=== PATIENT | female | born 1960 | race Caucasian/White ===

== ENCOUNTER 2016-03-30 10:12 | Inpatient (IN) | payer BC ==
[~2016-03-30] VITALS: Ht 165.1 cm; Wt 126.6 kg
[2016-03-30] MEDS ORDERED: TENORMIN50 MG ORAL (10:27)
[2016-03-30] MEDS ORDERED: BYETTA10 MCG/0.0 SQ (10:27)
[2016-03-30] MEDS ORDERED: METFORMIN HCL1000 M1 ORAL (10:27)
[2016-03-30] MEDS ORDERED: PRANDIN2 MG ORAL (10:28)
[2016-03-30] MEDS ORDERED: VYTORIN 10-201 EACH ORAL (10:28)
[2016-03-30 10:36] VITALS: BP 158/89
[2016-03-30] MEDS ORDERED: Nitroglycerin 2% oint pkt TOPIC ONE (11:00)
--- NOTE | 2016-03-30 11:04 | Emergency Room Report ---
History of Present Illness General Chief Complaint: Dyspnea/Respdistress Source: Patient Present Illness HPI The patient presents with exertional dyspnea. She is able to walk upstairs before the [place] break but now she gets winded when she was making her bed and also when she was walking up stairs -- something she normally is able to do. Denies any swelling in her legs or pain in her calves. No coughing, sore throat, fever. No change in her medication. She passed a large kidney stone on Tuesday. She's had a history of uric acid stones. Family history of MIs at early age (father age 46). She has diabetes and hypertension. She does not smoke. H/O treatment of PVCs and w/u with Holter several years ago. No increased palpitations. No stress test at that time. She has constant stress with her job. 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 Nursing Documentation: PMH: Agreed, PSxH: Agreed Nursing Documentation-PMH Past Medical History: No History, Except For Hx Cardiac Problems: Yes - PVC Hx Hypertension: No Hx Pacemaker: No Hx Asthma: No Hx COPD: No Hx Diabetes: Yes Hx Cancer: No Hx Gastrointestinal Problems: No Hx Dialysis: No - Kidney stone History Of Psychiatric Problem: No Hx Neurological Problems: No Hx Cerebrovascular Accident: No Hx Seizures: No Review of Systems All Other Systems: negative except mentioned in HPI Physical Exam Vital Signs Date Time Temp Pulse Resp B/P Pulse Ox O2 Delivery O2 Flow Rate FiO2 03/30/16 10:21 97.2 70 18 158/89 93 Room Air Sp02 EP Interpretation: reviewed, normal General Appearance: well appearing, no apparent distress, GCS 15, obese Head: normocephalic, atraumatic Eyes: bilateral eye PERRL, bilateral eye normal inspection ENT: moist mucus membranes Neck: full range of motion, supple Respiratory: chest non-tender, lungs clear, normal breath sounds Cardiovascular #1: regular rate, rhythm, no edema, no JVD Cardiovascular #2: 2+ radial (R) Gastrointestinal: normal inspection, normal bowel sounds, non tender, non- distended Musculoskeletal: back normal, gait/station normal, normal range of motion, no calf tenderness Neurologic: alert, oriented x3 - grossly normal Psychiatric: mood/affect normal Skin: normal inspection, warm/dry Medical Decision Making Diagnostic Impression: Primary Impression: ACS (acute coronary syndrome) Additional Impressions: Diabetes Qualified Codes: E11.9 - Type 2 diabetes mellitus without complications HTN (hypertension) Qualified Codes: I10 - Essential (primary) hypertension ER Course Patient with significant family history, diabetes and HTN with exertional dyspnea which is occurring with less exertion. DDx: deconditioning, ACS, AMI, crescendo angina. Exam against PE. No fevers so doubt bronchitis. No chest pain per se, but patient is female. Needs emergent evaluation with labs, EKG, CXR. Treatment with aspirin and nitrates with cardiac evaluation. Labs unremarkable. EKG normal. Patient would like outpatient work up, however, needs at least 3 neg troponins to decide. Needs consultation with statistical methods teacher. Asymptomatic at rest. Admit telemetry Dr. Goins. Laboratory Tests Test 03/30/16 11:46 03/30/16 14:25 03/30/16 19:05 White Blood Count 11.6 K/UL (4.8-10.8) H Red Blood Count 4.44 M/UL (4.20-5.40) Hemoglobin 14.5 G/DL (12.0-16.0) Hematocrit 43.5 % (37.0-47.0) Mean Corpuscular Volume 98 FL (80-99) Mean Corpuscular Hemoglobin 32.7 PG (27.0-31.0) H Mean Corpuscular Hemoglobin Concent 33.4 G/DL (32.0-36.0) Red Cell Distribution Width 11.6 % (11.6-14.8) Platelet Count 224 K/UL (150-450) Mean Platelet Volume 8.3 FL (6.5-10.1) Neutrophils (%) (Auto) 71.2 % (45.0-75.0) Lymphocytes (%) (Auto) 19.1 % (20.0-45.0) L Monocytes (%) (Auto) 5.1 % (1.0-10.0) Eosinophils (%) (Auto) 3.8 % (0.0-3.0) H Basophils (%) (Auto) 0.9 % (0.0-2.0) Prothrombin Time 9.7 SEC (9.30-11.50) Prothrombin Time INR 1.0 (0.9-1.1) PTT 31 SEC (23-33) Urine Color Pale yellow Urine Appearance Clear Urine pH 5 (4.5-8.0) Urine Specific [place] 1.010 (1.005-1.035) Urine Protein 1+ (NEGATIVE) H Urine Glucose (UA) 2+ (NEGATIVE) H Urine Ketones Negative (NEGATIVE) Urine Occult Blood Negative (NEGATIVE) Urine Nitrite Negative (NEGATIVE) Urine Bilirubin Negative (NEGATIVE) Urine Urobilinogen Normal MG/DL (0.0-1.0) Urine Leukocyte Esterase 1+ (NEGATIVE) H Urine RBC 0-2 /HPF (0 - 2) Urine WBC 2-4 /HPF (0 - 2) Urine Squamous Epithelial Cells Few /LPF (NONE/OCC) Urine Bacteria Few /HPF (NONE) Sodium Level 135 mEQ/L (135-145) Potassium Level 4.5 mEQ/L (3.4-4.9) Chloride Level 92 mEQ/L (98-107) L Carbon Dioxide Level 25 mEQ/L (20-30) Anion Gap 18 (5-15) H Blood Urea Nitrogen 20 mg/dL (7-23) Creatinine 1.0 mg/dL (0.5-0.9) H Estimate Glomerular Filtration Rate 57.1 mL/min (>60) Glucose Level 269 mg/dL (74-106) H Calcium Level 9.8 mg/dL (8.6-10.2) Total Bilirubin 2.0 mg/dL (0.0-1.2) H Direct Bilirubin 0.3 mg/dL (0.1-0.3) Aspartate Amino Transferase (AST) 25 U/L (5-40) Alanine Aminotransferase (ALT) 38 U/L (3-33) H Alkaline Phosphatase 88 U/L (35-104) Total Creatine Kinase 29 U/L (26-140) Troponin I < 0.30 ng/mL (<=0.30) < 0.30 ng/mL (<=0.30) < 0.30 ng/mL (<=0.30) Pro-B-Type Natriuretic Peptide 118 pg/mL (0-125) Total Protein 7.6 g/dL (6.6-8.7) Albumin 4.4 g/dL (3.5-5.2) Globulin 3.2 g/dL Albumin/Globulin Ratio 1.3 (1.0-2.7) Thyroid Stimulating Hormone (TSH) 0.980 uIU/mL (0.300-4.500) EKG Diagnostic Results Rate: normal Rhythm: NSR ST Segments: no acute changes Rhythm Strip Diag. Results EP Interpretation: yes Rhythm: NSR, no PVC's, no ectopy Chest X-Ray Diagnostic Results EP Interpretation: Yes Findings: no consolidation, no effusion, no pneumothorax, no acute cardiopulmonary disease Number of Views: 1 Last Vital Signs Date Time Temp Pulse Resp B/P Pulse Ox O2 Delivery O2 Flow Rate FiO2 03/30/16 10:59 70 18 Room Air 03/30/16 10:36 97.2 158/89 93 Status: improved Disposition: ADMITTED INPATIENT Condition: Serious Jerel Cardenas M.D. Mar 30, 2016 11:04
[2016-03-30 11:58] LABS: APPEARANCE,URINE CLEAR; BASOPHILS % (AUTO) 0.9 % (0.0-2.0); EOSINOPHILS % (AUTO) 3.8 % (0.0-3.0); KETONES,URINE NEGATIVE (NEGATIVE); LEUKOCYTE ESTERASE ,URINE 1+ (NEGATIVE); LYMPHOCYTES % (AUTO) 19.1 % (20.0-45.0); MEAN CORPUSCULAR HEMOGLOBIN 32.7 PG (27.0-31.0); MEAN CORPUSCULAR HGB CONC 33.4 G/DL (32.0-36.0); MEAN CORPUSCULAR VOLUME 98 FL (80-99); MEAN PLATELET VOLUME 8.3 FL (6.5-10.1); MONOCYTES % (AUTO) 5.1 % (1.0-10.0); NEUTROPHILS % (AUTO) 71.2 % (45.0-75.0); NITRITE,URINE NEGATIVE (NEGATIVE); PH,URINE 5 (4.5-8.0); PLATELET COUNT 224 K/UL (150-450); PROTEIN,URINE 1+ (NEGATIVE); RED BLOOD COUNT 4.44 M/UL (4.20-5.40); RED CELL DISTRIBUTION WIDTH 11.6 % (11.6-14.8); UROBILINOGEN,URINE NORMAL MG/DL (0.0-1.0); WHITE BLOOD COUNT 11.6 K/UL (4.8-10.8)
[2016-03-30 12:07] LABS: PROTHROMBIN TIME 9.7 SEC (9.30-11.50)
[2016-03-30 12:08] LABS: BACTERIA,URINE FEW /HPF; RBC,URINE 0-2 /HPF (0 - 2); SQUAMOUS EPITHELIAL CELL,UR FEW /LPF (NONE/OCC)
[2016-03-30 12:12] LABS: TROPONIN I < 0.30 ng/mL (<=0.30)
[2016-03-30 12:15] LABS: ALANINE AMINOTRANSFERASE 38 U/L (3-33); ALBUMIN/GLOBULIN RATIO 1.3 (1.0-2.7); ANION GAP 18 (5-15); ASPARTATE AMINO TRANSFERASE 25 U/L (5-40); CALCIUM 9.8 mg/dL (8.6-10.2); CARBON DIOXIDE 25 mEQ/L (20-30); CHLORIDE 92 mEQ/L (98-107); GLOMERULAR FILTRATION RATE 57.1 mL/min (>60); HEMOLYSIS 0; POTASSIUM 4.5 mEQ/L (3.4-4.9); SODIUM 135 mEQ/L (135-145); TOTAL PROTEIN 7.6 g/dL (6.6-8.7)
[2016-03-30 12:37] LABS: BILIRUBIN,DIRECT 0.3 mg/dL (0.1-0.3)
[2016-03-30 13:34] VITALS: BP 124/75
[2016-03-30 15:12] LABS: TROPONIN I < 0.30 ng/mL (<=0.30)
[2016-03-30 15:46] VITALS: BP 119/72
[2016-03-30 16:00] VITALS: BP 138/78
[2016-03-30 20:00] VITALS: BP 124/59
[2016-03-30 20:00] LABS: TROPONIN I < 0.30 ng/mL (<=0.30)
[2016-03-30] MEDS: metFORMIN 500mg tab ORAL SCH (20:00)
[2016-03-30] MEDS: NovoLOG Insulin Flexpen SUBQ SCH (21:00)
[2016-03-30] MEDS: Heparin 5000 units/ml inj SUBQ SCH (21:16)
[2016-03-31 04:00] VITALS: BP 129/69
[2016-03-31] MEDS: Heparin 5000 units/ml inj SUBQ SCH ×3 (05:51→21:48)
[2016-03-31] MEDS: NovoLOG Insulin Flexpen SUBQ SCH ×4 (06:29→21:00)
[2016-03-31 08:06] LABS: LYMPHOCYTES % (AUTO) 19.3 % (20.0-45.0); MEAN CORPUSCULAR HEMOGLOBIN 33.4 PG (27.0-31.0); MEAN CORPUSCULAR HGB CONC 34.2 G/DL (32.0-36.0); MEAN CORPUSCULAR VOLUME 98 FL (80-99); MEAN PLATELET VOLUME 7.9 FL (6.5-10.1); NEUTROPHILS % (AUTO) 70.7 % (45.0-75.0); PLATELET COUNT 216 K/UL (150-450); RED BLOOD COUNT 4.16 M/UL (4.20-5.40); RED CELL DISTRIBUTION WIDTH 11.6 % (11.6-14.8); WHITE BLOOD COUNT 10.5 K/UL (4.8-10.8)
[2016-03-31] MEDS: Repaglinide 1mg tab ORAL SCH ×4 (08:11→17:44)
[2016-03-31 08:18] LABS: ALBUMIN/GLOBULIN RATIO 1.1 (1.0-2.7); CALCIUM 9.7 mg/dL (8.6-10.2); GLOMERULAR FILTRATION RATE 57.1 mL/min (>60); MAGNESIUM 1.5 mg/dL (1.7-2.5); POTASSIUM 4.7 mEQ/L (3.4-4.9); TOTAL PROTEIN 7.5 g/dL (6.6-8.7)
[2016-03-31 08:32] LABS: TROPONIN I < 0.30 ng/mL (<=0.30)
[2016-03-31 08:33] LABS: BILIRUBIN,DIRECT 0.3 mg/dL (0.1-0.3)
[2016-03-31 08:34] VITALS: BP 138/77
[2016-03-31] MEDS: Aspirin Baby 81mg ORAL SCH (08:46)
[2016-03-31] MEDS: metFORMIN 500mg tab ORAL SCH ×2 (09:00→18:00)
[2016-03-31 11:58] VITALS: BP 140/80
--- NOTE | 2016-03-31 13:53 | History & Physical ---
History and Physical History & Physicial Dictated for Dr Goins no. [id number]. LUZMARIA REYNOLDS Mar 31, 2016 13:53
[2016-03-31] MEDS ORDERED: Adenosine Inj IVP ONE (14:00)
--- NOTE | 2016-03-31 15:01 | Cardiology Report ---
APPROVED REPORT EKG Measurement Heart [id number] Normal sinus rhythm Cannot rule out Inferior infarct, age undetermined Abnormal ECG
--- NOTE | 2016-03-31 15:08 | Cardiology Report ---
APPROVED REPORT EKG Measurement Heart [id number] FL [id number] Normal sinus rhythm Left axis deviation Low voltage QRS Cannot rule out Anterior infarct, age undetermined Abnormal ECG
--- NOTE | 2016-03-31 15:27 | Cardiology Report ---
APPROVED REPORT EXAM: Two-dimensional and M-mode echocardiogram with Doppler and color Doppler. INDICATION SOB M-Mode DIMENSIONS IVSd1.1 (0.7-1.1cm)Left Atrium (MM)4.5 (1.6-4.0cm) LVDd4.5 (3.5-5.6cm)Aortic Root2.9 (2.0-3.7cm) PWd0.8 (0.7-1.1cm)Aortic Cusp Exc.1.7 (1.5-2.0cm) LVDs2.5 (2.5-4.0cm) PWs1.5 cm Technically difficult study due to poor acoustic windows. Normal left ventricular chamber size, systolic function and wall motion. Left ventricular ejection fraction estimated to be 60-65 %. Mild left ventricular hypertrophy. Mild anterior pericardial effusion. Mild bi-atrial and right atrial enlargement by 2D. Focal aortic valve sclerosis with adequate cusp excursion Thickened mitral valve leaflets with normal excursion. Mitral annulus and aortic root calcification. Pulmonic valve not well visualized. Normal tricuspid valve structure. IVC is normal in size with physiologic collapse. A color flow and spectral Doppler study was performed and revealed: No aortic regurgitation. No mitral regurgitation. Left ventricular diastolic dysfunction grade 1. Mild tricuspid regurgitation. Tricuspid systolic velocities suggests peak right ventricular systolic pressure of 49 mmHg Consistent with moderate pulmonary hypertension. Pulmonic regurgitation present.
[2016-03-31 16:00] VITALS: BP 117/77
--- NOTE | 2016-03-31 19:27 | History and Physical Report ---
DATE OF ADMISSION: 03/30/2016 CHIEF COMPLAINT: The patient is a 55-year-old white female, who presents with chief complaint of shortness of breath. HISTORY OF PRESENT ILLNESS: Began on 03/29/2016. The patient was began to experience shortness of breath. Shortness of breath got worse on Tuesday. Shortness of breath was worse with exacerbation and exercise. The patient states that she had a 7 [address] car ride over the weekend. The patient is concerned with pulmonary embolism as she has read on the Internet. The patient presented to [facility]. The patient is admitted for shortness of breath to rule out coronary artery disease versus pulmonary embolism. PAST MEDICAL HISTORY: Significant for, 1. Type 2 diabetes. 2. History of renal calculi, uric acid. 3. Hypertension. 4. History of premature ventricular contractions. 5. Uterine fibroid. PAST SURGICAL HISTORY: The patient denies. CURRENT MEDICATIONS: 1. Atenolol 50 mg one tablet p.o. twice daily. 2. Metformin 1000 mg one tablet p.o. twice daily. 3. Vytorin 10/20 mg one tablet p.o. daily. 4. Prandin 2 milligram two tablets p.o. q.a.c. meals. 5. Byetta 10 mcg subcutaneously twice daily. ALLERGIES: No known drug allergies. 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 The patient denies tobacco use. The patient admits to rare alcohol use. REVIEW OF SYSTEMS: Constitutional: The patient denies weight loss or weight gain. The patient denies fevers or chills. HEENT: The patient denies ear or throat pain. The patient denies headache. Cardiovascular: The patient denies palpitations or chest pain. Chest: The patient complains of shortness of breath as above. The patient denies wheezes. Abdomen: The patient denies nausea, vomiting, diarrhea, or constipation. Genitourinary: The patient denies dysuria or increased frequency of urination. Neuromuscular: The patient denies seizures or generalized weakness. PHYSICAL EXAMINATION: VITAL SIGNS: Temperature 98.6 degrees, respirations 18, pulse 71, blood pressure 129/69, and pulse oximetry 92% to 95% on room air. GENERAL: The patient is well developed, well nourished, obese white female, in no apparent distress. HEENT: Eyes, pupils are equal and responsive to light and accommodation. Extraocular movements are intact. NECK: Supple without lymphadenopathy. CHEST: Lungs are clear to auscultation bilaterally without wheeze or rales. HEART: Regular rhythm and rate. S1 and S2 normal without murmurs, rubs, or gallops. ABDOMEN: Soft, nontender, and nondistended. Positive bowel sounds. No evidence of hepatosplenomegaly. Currently, no rebound or guarding. EXTREMITIES: Negative for clubbing, cyanosis, or or edema. RECTAL/GENITAL: Refused. NEUROLOGIC: Cranial nerves II through XII are grossly intact without focal deficits. Motor strength is 5/5 bilaterally. Deep tendon reflexes are 2+ plantar. LABORATORY STUDIES: WBC 11.6, hemoglobin 14.5, hematocrit 43.5, and platelets 224,000. Sodium 140, potassium 4.7, chloride 97, CO2 17, BUN 20, and creatinine 1.0. Glucose is elevated at 217. Troponin is negative at less than 0.3. ASSESSMENT: This is a 55-year-old white female. 1. Shortness of breath. 2. Diabetes type 2. 3. Renal calculi. 4. Hypertension. 5. Premature ventricular contractions. 6. History of uterine fibroids. TREATMENT: 1. Shortness of breath. A Cardiology consultation was obtained with Dr. Gao. This may be cardiac in nature. This may also be pulmonary in nature. The patient is currently undergoing venous duplex Dopplers to rule out deep venous thrombosis. The patient is also scheduled for a dobutamine Cardiolite stress test. 2. Diabetes type 2. Continue Prandin and metformin as above. A NovoLog sliding scale has been instituted. 3. History of renal calculi. 4. Hypertension. Continue atenolol as above. 5. Premature ventricular contractions. Continue atenolol as above. A Cardiology consultation was obtained with Dr. Gao. 6. History of uterine fibroids. Eris Barkley M.D. DR: MARI JOB#: [id number] CC:
[2016-03-31 20:00] VITALS: BP 147/87
--- NOTE | 2016-03-31 20:47 | Consultation ---
DATE OF CONSULTATION: 03/31/2016 CARDIOLOGY CONSULTATION ATTENDING PHYSICIAN: Jovanny Goins M.D. REFERRING PHYSICIAN: Jovanny Goins M.D. REASON FOR CONSULTATION: Shortness of breath. HISTORY OF PRESENT ILLNESS: The patient is a 55-year-old woman with no past coronary history, who presents with sudden onset of shortness of breath and dyspnea on exertion going up the stairs where she usually has no problems. She was recently in a 7-hour drive from [place]. She denies any chest pain. She denies any pleuritic component. She has a history of hypertension, hyperlipidemia, and diabetes. She also has a history of PVCs that she has been on a beta-claudia for it. The patient was admitted through the emergency room for further care and management. PAST MEDICAL HISTORY: As mentioned above. MEDICATIONS: I have reviewed the medication reconciliation form and medication administration record. ALLERGIES: None. 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 She does not smoke or drink alcohol. FAMILY HISTORY: Positive for premature coronary artery disease in father. REVIEW OF SYSTEMS: Comprehensive 12-point review of systems otherwise negative. PHYSICAL EXAMINATION: VITAL SIGNS: Stable. GENERAL: She is morbidly obese, in no apparent distress. HEENT: Normocephalic and atraumatic. Conjunctivae nonicteric and noninjected. Oral mucosa appear moist. NECK: Supple. There is no lymphadenopathy or carotid bruits. LUNGS: Clear to auscultation. CARDIAC: Regular rate and rhythm. No murmurs, rubs, gallops. ABDOMEN: Soft and nontender. EXTREMITIES: There is no cyanosis, clubbing, or edema. There is 2+ pulses. IMPRESSION AND RECOMMENDATION: 1. Shortness of breath and dyspnea on exertion. 2. Morbid obesity. 3. Diabetes. DISCUSSION: She certainly has risk factors for pulmonary embolism. She has a significantly high D-dimer, this could be due to inflammatory response and diabetes, however, it is important to rule out pulmonary embolism. She is ruled out for myocardial infarction with serial enzymes. We will obtain a stress test, the lower extremity venous Doppler and CT pulmonary angiogram. Thank you, Dr. Goins, for allowing me to participate in care patient. Please feel free to contact me with any questions or concerns. Kofi Gao M.D. DR: JESSICA JOB#: [id number] CC:
[2016-04-01] VITALS: BP 121/67
[2016-04-01] MEDS: Heparin 5000 units/ml inj SUBQ SCH ×2 (05:47→14:35)
[2016-04-01] MEDS: NovoLOG Insulin Flexpen SUBQ SCH ×4 (05:53→21:00)
[2016-04-01] MEDS: Repaglinide 1mg tab ORAL SCH ×3 (06:56→16:30)
[2016-04-01 07:16] LABS: BASOPHILS % (AUTO) 1.1 % (0.0-2.0); EOSINOPHILS % (AUTO) 2.9 % (0.0-3.0); LYMPHOCYTES % (AUTO) 21.5 % (20.0-45.0); MEAN CORPUSCULAR HEMOGLOBIN 34.5 PG (27.0-31.0); MEAN CORPUSCULAR HGB CONC 35.1 G/DL (32.0-36.0); MEAN CORPUSCULAR VOLUME 98 FL (80-99); MEAN PLATELET VOLUME 8.7 FL (6.5-10.1); MONOCYTES % (AUTO) 7.3 % (1.0-10.0); NEUTROPHILS % (AUTO) 67.1 % (45.0-75.0); PLATELET COUNT 223 K/UL (150-450); RED BLOOD COUNT 4.03 M/UL (4.20-5.40); RED CELL DISTRIBUTION WIDTH 11.8 % (11.6-14.8); WHITE BLOOD COUNT 11.9 K/UL (4.8-10.8)
[2016-04-01 07:34] LABS: CALCIUM 9.4 mg/dL (8.6-10.2); GLOMERULAR FILTRATION RATE 57.1 mL/min (>60); POTASSIUM 4.3 mEQ/L (3.4-4.9)
[2016-04-01 08:19] VITALS: BP 120/69
[2016-04-01 08:22] VITALS: BP 120/69
[2016-04-01] MEDS: Aspirin Baby 81mg ORAL SCH (09:37)
[2016-04-01] MEDS: metFORMIN 500mg tab ORAL SCH ×2 (09:39→18:00)
--- NOTE | 2016-04-01 10:19 | Diagnostic Imaging Report ---
Indications: 55-year-old female inpatient presents with syncope and shortness of breath Technique: The examination was supervised by Dr. Gao. Baseline electrocardiogram was recorded. Adenosine was administered the patient intravenously per usual protocol. Continuous electrocardiography, heart rate, blood pressure monitoring performed. Immediate SPECT imaging of the left ventricular myocardium was performed in multiple planes with the patient in supine position, following intravenous administration of 31 mCi 99 M technetium-sestaMIBI. Cinegraphic images were generated for wall motion analysis. Left ventricular ejection fraction was calculated. Similar imaging was performed at rest immediately prior with intravenous administration of 11.5 mCi 99 M technetium-sestaMIBI. Findings: Comparison: None. Image quality is suboptimal, limiting evaluation. Stress images demonstrate a moderate-sized area of decreased perfusion involving the mid to basal aspect of the lateral wall. This appears to reperfuse on rest images.. Wall motion images are uninterpretable. Ejection fraction is estimated at 67%. The patient developed no acute complaints or electrocardiographic changes during adenosine infusion. Supervising milking system installer's conclusions are that clinical response to pharmacologic stress simulation is nonischemic while electrocardiographic response is likewise nonischemic. IMPRESSION: Apparent reversible perfusion abnormality in the mid to basal aspect of the lateral wall compatible with ischemia in the distribution of the circumflex artery. Correlation with wall motion is not possible on this exam. LVEF within normal limits This does not correlate with supervising milking system installer's conclusions.
[2016-04-01 11:56] VITALS: BP 111/73
[2016-04-01 16:00] VITALS: BP 139/88
--- NOTE | 2016-04-01 16:56 | Cardiology Progress Note ---
Assessment/Plan Problem List: (1) Respiratory distress (2) HTN (hypertension) (3) ACS (acute coronary syndrome) (4) Diabetes Status: not improved, unchanged Status Narrative Ms. Joaquin has bilateral pulm emboli incl small nonocclusive saddle embolus on CT. Venous duplex was negative for DVT Stress nuclear study shows a possible reversible mid- basal lateral perfusion defect w/ ischemia. ECHO is essentially normal. Assessment/Plan Will start iv heparin for acute PE. Supplemental O2 prn She will need oral ac as well. Will transfer to [facility] , as pt may need more advanced therapies for PE, given extent of thrombus based on CT Stress nuclear findings noted - would consider CTA coronary arteries once she has been treated for PE d/w Dr. Barkley Subjective ROS Limited/Unobtainable: No Subjective Ms. Joaquin c/o dyspnea w minimal exertion - walking in room. No CP. No LE pain Events noted Objective Last 24 Hour Vital Signs Date Time Temp Pulse Resp B/P Pulse Ox O2 Delivery O2 Flow Rate FiO2 04/01/16 11:56 98.1 67 18 111/73 95 Room Air 04/01/16 09:40 95 120/69 04/01/16 08:26 84 04/01/16 08:22 97.3 75 18 120/69 95 Room Air 04/01/16 08:19 98.2 75 20 120/69 95 Room Air 04/01/16 04:00 98.2 04/01/16 04:00 71 04/01/16 00:00 98.0 95 20 121/67 94 Room Air 04/01/16 00:00 72 03/31/16 20:37 94 147/87 03/31/16 20:00 97 03/31/16 20:00 96.0 89 20 147/87 94 Room Air General Appearance: WD/WN, alert, mild distress, obese EENT: PERRL/EOMI Neck: no JVD Rhythm: NSR Cardiovascular: normal rate, regular rhythm, no gallop/murmur Respiratory/Chest: lungs clear Abdomen: non tender, soft Extremities: non-tender, no swelling Intake and Output 03/31/16 04/01/16 19:00 07:00 # Voids 2 Laboratory Tests Test 04/01/16 06:25 White Blood Count 11.9 K/UL (4.8-10.8) H Red Blood Count 4.03 M/UL (4.20-5.40) L Hemoglobin 13.9 G/DL (12.0-16.0) Hematocrit 39.5 % (37.0-47.0) Mean Corpuscular Volume 98 FL (80-99) Mean Corpuscular Hemoglobin 34.5 PG (27.0-31.0) H Mean Corpuscular Hemoglobin Concent 35.1 G/DL (32.0-36.0) Red Cell Distribution Width 11.8 % (11.6-14.8) Platelet Count 223 K/UL (150-450) Mean Platelet Volume 8.7 FL (6.5-10.1) Neutrophils (%) (Auto) 67.1 % (45.0-75.0) Lymphocytes (%) (Auto) 21.5 % (20.0-45.0) Monocytes (%) (Auto) 7.3 % (1.0-10.0) Eosinophils (%) (Auto) 2.9 % (0.0-3.0) Basophils (%) (Auto) 1.1 % (0.0-2.0) Sodium Level 137 mEQ/L (135-145) Potassium Level 4.3 mEQ/L (3.4-4.9) Chloride Level 98 mEQ/L (98-107) Carbon Dioxide Level 24 mEQ/L (20-30) Anion Gap 15 (5-15) Blood Urea Nitrogen 21 mg/dL (7-23) Creatinine 1.0 mg/dL (0.5-0.9) H Estimat Glomerular Filtration Rate 57.1 mL/min (>60) Glucose Level 196 mg/dL (74-106) H Calcium Level 9.4 mg/dL (8.6-10.2) ANITA ACE Apr 01, 2016 16:56
--- NOTE | 2016-04-01 17:23 | Internal Med Progress Note ---
Subjective Date of Service: Apr 01, 2016 Physician Name Eris Barkley Attending Physician Jovanny Goins MD Current Medications Medications (Trade) Dose Ordered Sig/Martha Route PRN Reason Start Time Stop Time Status Last Admin Dose Admin Acetaminophen (Tylenol) 650 mg Q6H PRN ORAL For Pain 03/30/16 19:00 04/29/16 18:59 Aspirin (ASA) 81 mg DAILY ORAL 03/31/16 09:00 04/30/16 08:59 04/01/16 09:37 Atenolol (Tenormin) 50 mg Q12HR ORAL 03/30/16 21:00 04/29/16 20:59 04/01/16 09:40 Dextrose (Dextrose 50%) STAT PRN IV Hypoglycemia 03/30/16 18:00 04/29/16 17:59 Heparin Sodium (Porcine) (Heparin 5000 units/ml) 5,000 units EVERY 8 HOURS SUBQ 03/30/16 22:00 04/29/16 21:59 04/01/16 14:35 Insulin Aspart (NovoLOG) BEFORE MEALS AND HS SUBQ 03/30/16 21:00 04/29/16 20:59 Metformin HCl (Glucophage) 1,000 mg BID ORAL 03/30/16 20:00 04/29/16 19:59 Ranitidine HCl (Zantac) 75 mg BID ORAL 03/31/16 09:00 04/30/16 08:59 03/31/16 17:44 Repaglinide (Prandin) 4 mg TIAC ORAL 03/31/16 06:30 04/30/16 06:29 04/01/16 12:45 Allergies: Coded Allergies: No Known Allergies (Unverified , 03/30/16) ROS Limited/Unobtainable: No Constitutional: Reports: no symptoms HEENT: Reports: no symptoms Cardiovascular: Reports: no symptoms Respiratory: Reports: shortness of breath Gastrointestinal/Abdominal: Reports: no symptoms Genitourinary: Reports: no symptoms Neurologic/Psychiatric: Reports: no symptoms Subjective Cover for Int Med-Dr Goins. Await pulmonary consult. Desat to 88% on room air Objective Last Vital Signs Date Time Temp Pulse Resp B/P Pulse Ox O2 Delivery O2 Flow Rate FiO2 04/01/16 16:00 96.8 85 20 139/88 88 Room Air General Appearance: WD/WN, no apparent distress, alert EENT: PERRL/EOMI, normal ENT inspection, TMs normal Neck: non-tender, normal alignment, supple Cardiovascular: normal peripheral pulses, normal rate, regular rhythm, no gallop/murmur, no JVD Respiratory/Chest: chest wall non-tender, decreased breath sounds, crackles/ rales, rhonchi - bilaterally, expiratory wheezing Abdomen: normal bowel sounds, non tender, soft, no organomegaly, no mass Extremities: normal range of motion, non-tender Neurologic: fell cutter II-XII grossly normal, no motor/sensory deficits Laboratory Tests Test 04/01/16 06:25 White Blood Count 11.9 K/UL (4.8-10.8) H Red Blood Count 4.03 M/UL (4.20-5.40) L Hemoglobin 13.9 G/DL (12.0-16.0) Hematocrit 39.5 % (37.0-47.0) Mean Corpuscular Volume 98 FL (80-99) Mean Corpuscular Hemoglobin 34.5 PG (27.0-31.0) H Mean Corpuscular Hemoglobin Concent 35.1 G/DL (32.0-36.0) Red Cell Distribution Width 11.8 % (11.6-14.8) Platelet Count 223 K/UL (150-450) Mean Platelet Volume 8.7 FL (6.5-10.1) Neutrophils (%) (Auto) 67.1 % (45.0-75.0) Lymphocytes (%) (Auto) 21.5 % (20.0-45.0) Monocytes (%) (Auto) 7.3 % (1.0-10.0) Eosinophils (%) (Auto) 2.9 % (0.0-3.0) Basophils (%) (Auto) 1.1 % (0.0-2.0) Sodium Level 137 mEQ/L (135-145) Potassium Level 4.3 mEQ/L (3.4-4.9) Chloride Level 98 mEQ/L (98-107) Carbon Dioxide Level 24 mEQ/L (20-30) Anion Gap 15 (5-15) Blood Urea Nitrogen 21 mg/dL (7-23) Creatinine 1.0 mg/dL (0.5-0.9) H Estimat Glomerular Filtration Rate 57.1 mL/min (>60) Glucose Level 196 mg/dL (74-106) H Calcium Level 9.4 mg/dL (8.6-10.2) Intake and Output 03/31/16 04/01/16 19:00 07:00 # Voids 2 Assessment/Plan Problem List: (1) Pulmonary embolism Assessment & Plan: Bilateral. Venous doppler neg. Start heparin drip and coumadin; D/C heparin when coumadin therapeutic (2) Hypoxemia (3) Shortness of breath Assessment & Plan: Due to pulmonary embolism. (4) Renal calculi (5) Diabetes Assessment & Plan: Cont glucophage and novolog sliding scale. (6) HTN (hypertension) Assessment & Plan: Cont atenolol (7) Chest pain Assessment & Plan: see nuclear cardiac stress test. See cardiology note. Reversible Perfusion defect with ischemia Status: not improved Assessment/Plan Transfer to [facility] for Pulmonary Embolism team ERIS Mcarthur Apr 01, 2016 17:23
[2016-04-01] MEDS ORDERED: Heparin 25,000u/D5W 500ml (VTE/AF) IV SCH (18:00)
[2016-04-01] MEDS ORDERED: Heparin 5000 units/ml inj IV ONE (18:00)
[2016-04-01] MEDS ORDERED: Warfarin Sodium 7.5mg ORAL ONE (18:30)
[2016-04-01 18:46] LABS: BASOPHILS % (AUTO) 1.1 % (0.0-2.0); EOSINOPHILS % (AUTO) 2.4 % (0.0-3.0); LYMPHOCYTES % (AUTO) 21.2 % (20.0-45.0); MEAN CORPUSCULAR HEMOGLOBIN 34.1 PG (27.0-31.0); MEAN CORPUSCULAR HGB CONC 35.6 G/DL (32.0-36.0); MEAN CORPUSCULAR VOLUME 96 FL (80-99); MEAN PLATELET VOLUME 8.1 FL (6.5-10.1); NEUTROPHILS % (AUTO) 68.3 % (45.0-75.0); PLATELET COUNT 267 K/UL (150-450); RED BLOOD COUNT 4.42 M/UL (4.20-5.40); RED CELL DISTRIBUTION WIDTH 11.8 % (11.6-14.8); WHITE BLOOD COUNT 14.1 K/UL (4.8-10.8)
--- NOTE | 2016-04-01 18:55 | Consultation ---
History of Present Illness General Date patient seen: Apr 01, 2016 Chief Complaint: Dyspnea/Respdistress Referring physician: Dr. Goins Reason for Consultation: Dyspnea Present Illness HPI 55 year old female with hx of DM and HTN, who was sitting a car recently for a few hours, she presented to [facility] [place], [place] with CC of dyspnea, and being short winded. She was admitted to rule out CAD and ACS. Dr. Gao saw her in cardiology consultation and ordered CTA to rule out PE. CT anigo showed that she has "submassive" bilateral pulmonary embolism. She was started on IV heparin, pulmonary and hematology were called to help with the management. She is less short of breath now. But she is not back to her normal breathing pattern yet. Allergies: Coded Allergies: No Known Allergies (Unverified , 03/30/16) Medication History Scheduled Atenolol* (Tenormin*), 50 MG ORAL BID, (Reported) Exenatide (Byetta), 10 MCG SQ BID, (Reported) Ezetimibe/Simvastatin 10-20MG (Vytorin 10-20 Mg Tablet), 1 TAB ORAL DAILY, ( Reported) Metformin Hcl* (Metformin Hcl*), 1,000 MG ORAL BID, (Reported) Repaglinide (Prandin), 4 MG ORAL THREE TIMES A DAY, (Reported) Patient History Healthcare decision maker Resuscitation status Full Code Advanced Directive on File Past Medical/Surgical History Past Medical/Surgical History: (1) HTN (hypertension) (2) Diabetes Review of Systems All Other Systems: negative except mentioned in HPI Physical Exam General Appearance: WD/WN Lines, tubes and drains: peripheral, central line HEENT: normocephalic, atraumatic Neck: non-tender, normal alignment Respiratory/Chest: chest wall non-tender, lungs clear Cardiovascular/Chest: normal peripheral pulses, normal rate Abdomen: normal bowel sounds Genitourinary/Rectal: normal genital exam Extremities: normal range of motion Last 24 Hour Vital Signs Date Time Temp Pulse Resp B/P Pulse Ox O2 Delivery O2 Flow Rate FiO2 04/01/16 16:00 96.8 85 20 139/88 88 Room Air 04/01/16 11:56 98.1 67 18 111/73 95 Room Air 04/01/16 09:40 95 120/69 04/01/16 08:26 84 04/01/16 08:22 97.3 75 18 120/69 95 Room Air 04/01/16 08:19 98.2 75 20 120/69 95 Room Air 04/01/16 04:00 98.2 04/01/16 04:00 71 04/01/16 00:00 98.0 95 20 121/67 94 Room Air 04/01/16 00:00 72 03/31/16 20:37 94 147/87 03/31/16 20:00 97 03/31/16 20:00 96.0 89 20 147/87 94 Room Air Intake and Output 03/31/16 04/01/16 19:00 07:00 # Voids 2 Laboratory Tests Test 04/01/16 06:25 04/01/16 18:15 White Blood Count 11.9 K/UL (4.8-10.8) H 14.1 K/UL (4.8-10.8) H Red Blood Count 4.03 M/UL (4.20-5.40) L 4.42 M/UL (4.20-5.40) Hemoglobin 13.9 G/DL (12.0-16.0) 15.1 G/DL (12.0-16.0) Hematocrit 39.5 % (37.0-47.0) 42.3 % (37.0-47.0) Mean Corpuscular Volume 98 FL (80-99) 96 FL (80-99) Mean Corpuscular Hemoglobin 34.5 PG (27.0-31.0) H 34.1 PG (27.0-31.0) H Mean Corpuscular Hemoglobin Concent 35.1 G/DL (32.0-36.0) 35.6 G/DL (32.0-36.0) Red Cell Distribution Width 11.8 % (11.6-14.8) 11.8 % (11.6-14.8) Platelet Count 223 K/UL (150-450) 267 K/UL (150-450) Mean Platelet Volume 8.7 FL (6.5-10.1) 8.1 FL (6.5-10.1) Neutrophils (%) (Auto) 67.1 % (45.0-75.0) 68.3 % (45.0-75.0) Lymphocytes (%) (Auto) 21.5 % (20.0-45.0) 21.2 % (20.0-45.0) Monocytes (%) (Auto) 7.3 % (1.0-10.0) 7.0 % (1.0-10.0) Eosinophils (%) (Auto) 2.9 % (0.0-3.0) 2.4 % (0.0-3.0) Basophils (%) (Auto) 1.1 % (0.0-2.0) 1.1 % (0.0-2.0) Sodium Level 137 mEQ/L (135-145) Potassium Level 4.3 mEQ/L (3.4-4.9) Chloride Level 98 mEQ/L (98-107) Carbon Dioxide Level 24 mEQ/L (20-30) Anion Gap 15 (5-15) Blood Urea Nitrogen 21 mg/dL (7-23) Creatinine 1.0 mg/dL (0.5-0.9) H Estimat Glomerular Filtration Rate 57.1 mL/min (>60) Glucose Level 196 mg/dL (74-106) H Calcium Level 9.4 mg/dL (8.6-10.2) Activated Partial Thromboplast Time Pending Height (Feet): 5 Height (Inches): 5.00 Weight (Pounds): 279 Medications Current Medications Medications (Trade) Dose Ordered Sig/Martha Route PRN Reason Start Time Stop Time Status Last Admin Dose Admin Acetaminophen 650 mg 650 mg Q6H PRN ORAL For Pain 03/30/16 19:00 04/29/16 18:59 Aspirin (ASA) 81 mg DAILY ORAL 03/31/16 09:00 04/30/16 08:59 04/01/16 09:37 Atenolol (Tenormin) 50 mg Q12HR ORAL 03/30/16 21:00 04/29/16 20:59 04/01/16 09:40 Dextrose (Dextrose 50%) STAT PRN IV Hypoglycemia 03/30/16 18:00 04/29/16 17:59 Heparin Sodium/ Dextrose (Heparin) 500 ml @ 43.028 mls/ hr Q24H IV 04/01/16 18:00 05/01/16 17:59 Insulin Aspart (NovoLOG) BEFORE MEALS AND HS SUBQ 03/30/16 21:00 04/29/16 20:59 Metformin HCl (Glucophage) 1,000 mg BID ORAL 03/30/16 20:00 04/29/16 19:59 Ranitidine HCl (Zantac) 75 mg BID ORAL 03/31/16 09:00 04/30/16 08:59 03/31/16 17:44 Repaglinide (Prandin) 4 mg TIAC ORAL 03/31/16 06:30 04/30/16 06:29 04/01/16 12:45 Rivaroxaban (Xarelto) 15 mg BID ORAL 04/02/16 09:00 05/02/16 08:59 UNV Warfarin Sodium (Coumadin per pharmacy) 1 ea DAILY PRN MISC . 04/01/16 17:30 05/01/16 17:29 Assessment/Plan Problem List: (1) Pulmonary embolism ICD Codes: I26.99 - Other pulmonary embolism without acute cor pulmonale SNOMED: 07461081, 43170856 Qualifiers: Qualified Codes: I26.92 - Saddle embolus of pulmonary artery without acute cor pulmonale (2) HTN (hypertension) ICD Codes: I10 - Essential (primary) hypertension SNOMED: 84834746 Qualifiers: Qualified Codes: I10 - Essential (primary) hypertension (3) Diabetes ICD Codes: E11.9 - Type 2 diabetes mellitus without complications SNOMED: 20683187 Qualifiers: Qualified Codes: E11.9 - Type 2 diabetes mellitus without complications Assessment/Plan IV heparin keep in telemetry echo to evaluate right heart function Start coumadin within one day. titrate cardiac meds monitor bp EDMOND BERNAL Apr 01, 2016 18:55
[2016-04-01 20:00] VITALS: BP 136/84
[2016-04-02] VITALS (7 sets, daily range): BP systolic 108–137; BP diastolic 67–82
--- NOTE | 2016-04-02 00:17 | Consultation ---
DATE OF CONSULTATION: NOTE: POOR AUDIO HEMATOLOGY/ONCOLOGY CONSULTATION REQUESTING PHYSICIAN: Eris Barkley M.D. REASON FOR CONSULTATION: Evaluation of pulmonary embolism. IDENTIFICATION: Dear Dr. Eris Barkley, The patient is a pleasant 55-year-old female with a past medical history, which is significant for no cardiac history, type 2 diabetes, history of renal calculi, uric acid elevation, hypertension, premature ventricular contractions, as well as uterine fibroids, at this time presented days ago for shortness of breath, dyspnea on exertion, this has been ongoing for the past several hours for the past several days. She reports that she had a seven-hour car ride over the weekend and she was concerned that she may have sustained a pulmonary embolism upon admission. She presented to the ER and was admitted with shortness of breath. CAT scan with angiogram reviewed pulmonary embolism with embolism. Hematology service is consulted. The patient is currently is on heparin drip. PAST MEDICAL HISTORY: Type 2 diabetes mellitus, history of renal calculi, uric acid, hypertension, premature ventricular contractions, and uterine fibroid. PAST SURGICAL HISTORY: None noted. MEDICATIONS: Atenolol, Vytorin, Prandin, Byetta, and metformin. ALLERGIES: No known drug allergies. SOCIAL HISTORY: Single. 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 Denies any tobacco use. Occasional use of alcohol, bur rarely. FAMILY HISTORY: Noncontributory. REVIEW OF SYSTEMS: Constitutional: No fever, chills, or night sweats. Skin: No rashes, lumps, or itching. HEENT: No headache or vision changes. Breasts: No lumps, pain, or discharge. Pulmonary: No cough or sputum. Shortness of breath. Cardiovascular: No chest pain, tightness, or palpitations. Gastrointestinal: No nausea, vomiting, or diarrhea. Genitourinary: No dysuria, frequency, or urgency. Musculoskeletal: No joint swelling, muscle pain, or trauma. PHYSICAL EXAMINATION: GENERAL: The patient is in no acute distress. VITAL SIGNS: Temperature is 96.8 degrees Fahrenheit , pulse 85, respiratory rate 12, blood pressure 139/88, and pulse oximetry 88% on room air. PULMONARY: Decreased breath sounds. CARDIOVASCULAR: Regular rate. No S3 or S4. ABDOMEN: Soft, nontender, and nondistended. EXTREMITIES: A 1+ edema. LABORATORY AND DIAGNOSTIC DATA: CBC, WBC 14.1, hemoglobin 15.1, hematocrit 42, and platelet count . BUN 21, creatinine 1. INR of 1. Urine shows 1+ protein and 2+ glucose. IMAGING: A Duplex of the lower extremities was negative for DVT. Myocardial perfusion scan lateral wall compatible with ischemia. ASSESSMENT: 1. Bilateral pulmonary embolism, on CTA. We need to confirm this all. The patient sustained pulmonary embolism after a seven-hour car ride . She will need a total of three months of anticoagulation. Next, will need a total of six months of anticoagulation. Coumadin and/or Xarelto we will consider transfer to [facility] for other interventions especially if the patient's vital signs . 2. embolism. 3. Shortness of breath, chest pain, rule out acute coronary syndrome. 4. Morbid obesity. 5. Diabetes mellitus. 6. Hypertension. 7. History of renal calculi. 8. Premature ventricular contractions. 9. Uterine fibroids. RECOMMENDATIONS: 1. I have reviewed recommendations including Pulmonary, Cardiology, and the arnp's note. 2. We will send for hypercoagulable workup. 3. The patient will need a total of two to six months of anticoagulation with Coumadin and/or anticoagulant such as Xarelto. 4. Maintain INR between . Coumadin has been ordered yesterday by Dr. Barkley. 5. Xarelto, however, , however, does not have any additional benefit. 6. . 7. . 8. . 9. . 10. recommended. 11. Continue heparin drip. 12. Dietitian consult and the patient will likely Coumadin. 13. GI prophylaxis with Pepcid. 14. Discussed with staff. Thank you, Dr. Eris Barkley, for this kind referral. Please do not hesitate to contact me if you have any further questions. Richardson Alcantar M.D. DR: BENEDICT JOB#: [id number] CC:
[2016-04-02] MEDS: Heparin 25,000u/D5W 500ml (VTE/AF) IV SCH ×4 (01:34→22:40)
[2016-04-02] MEDS: NovoLOG Insulin Flexpen SUBQ SCH ×4 (06:30→21:00)
[2016-04-02] MEDS: Repaglinide 1mg tab ORAL SCH ×3 (07:32→16:46)
[2016-04-02] MEDS ORDERED: Xarelto 10mg tab ORAL SCH (09:00)
[2016-04-02] MEDS: metFORMIN 500mg tab ORAL SCH ×3 (09:00→18:00)
[2016-04-02] MEDS: Aspirin Baby 81mg ORAL SCH (09:18)
[2016-04-02 09:23] LABS: CALCIUM 9.5 mg/dL (8.6-10.2); GLOMERULAR FILTRATION RATE 57.1 mL/min (>60)
--- NOTE | 2016-04-02 15:15 | Internal Med Progress Note ---
Subjective Physician Name Jovanny Goins Attending Physician Jovanny Goins MD Current Medications Medications (Trade) Dose Ordered Sig/Martha Route PRN Reason Start Time Stop Time Status Last Admin Dose Admin Acetaminophen 650 mg 650 mg Q6H PRN ORAL For Pain 03/30/16 19:00 04/29/16 18:59 Aspirin (ASA) 81 mg DAILY ORAL 03/31/16 09:00 04/30/16 08:59 04/02/16 09:18 Atenolol (Tenormin) 50 mg Q12HR ORAL 03/30/16 21:00 04/29/16 20:59 04/02/16 09:18 Dextrose (Dextrose 50%) STAT PRN IV Hypoglycemia 03/30/16 18:00 04/29/16 17:59 Heparin Sodium/ Dextrose (Heparin) 500 ml @ 37.966 mls/ hr Q24H IV 04/02/16 01:23 05/01/16 17:59 04/02/16 05:55 Insulin Aspart (NovoLOG) BEFORE MEALS AND HS SUBQ 03/30/16 21:00 04/29/16 20:59 Metformin HCl (Glucophage) 1,000 mg BID ORAL 03/30/16 20:00 04/29/16 19:59 Ranitidine HCl (Zantac) 75 mg BID ORAL 03/31/16 09:00 04/30/16 08:59 04/02/16 09:17 Repaglinide (Prandin) 4 mg TIAC ORAL 03/31/16 06:30 04/30/16 06:29 04/02/16 12:36 Allergies: Coded Allergies: No Known Allergies (Unverified , 03/30/16) Subjective awake, alert, responsive, less SOB, No CO, sitting up on chair Objective Last Vital Signs Date Time Temp Pulse Resp B/P Pulse Ox O2 Delivery O2 Flow Rate FiO2 04/02/16 12:00 97.0 68 18 135/70 94 Room Air Laboratory Tests Test 04/01/16 18:15 04/02/16 00:50 04/02/16 07:30 White Blood Count 14.1 K/UL (4.8-10.8) H Red Blood Count 4.42 M/UL (4.20-5.40) Hemoglobin 15.1 G/DL (12.0-16.0) Hematocrit 42.3 % (37.0-47.0) Mean Corpuscular Volume 96 FL (80-99) Mean Corpuscular Hemoglobin 34.1 PG (27.0-31.0) H Mean Corpuscular Hemoglobin Concent 35.6 G/DL (32.0-36.0) Red Cell Distribution Width 11.8 % (11.6-14.8) Platelet Count 267 K/UL (150-450) Mean Platelet Volume 8.1 FL (6.5-10.1) Neutrophils (%) (Auto) 68.3 % (45.0-75.0) Lymphocytes (%) (Auto) 21.2 % (20.0-45.0) Monocytes (%) (Auto) 7.0 % (1.0-10.0) Eosinophils (%) (Auto) 2.4 % (0.0-3.0) Basophils (%) (Auto) 1.1 % (0.0-2.0) Activated Partial Thromboplast Time 33 SEC (23-33) 101 SEC (23-33) H 82 SEC (23-33) H Ferritin 241 ng/mL (13-150) H Protein C Activity Pending Protein S Activity Pending Factor V Mutation Pending Prothrombin Gene Mutation Pending Prothrombin Gene Shared Component Pending Sodium Level 140 mEQ/L (135-145) Potassium Level 4.0 mEQ/L (3.4-4.9) Chloride Level 97 mEQ/L (98-107) L Carbon Dioxide Level 24 mEQ/L (20-30) Anion Gap 19 (5-15) H Blood Urea Nitrogen 23 mg/dL (7-23) Creatinine 1.0 mg/dL (0.5-0.9) H Estimat Glomerular Filtration Rate 57.1 mL/min (>60) Glucose Level 222 mg/dL (74-106) H Calcium Level 9.5 mg/dL (8.6-10.2) Magnesium Level 1.6 mg/dL (1.7-2.5) L Intake and Output 04/01/16 04/02/16 19:00 07:00 Intake Total 240 ml 355 ml Balance 240 ml 355 ml Intake Oral 240 ml IV Total 355 ml # Voids 2 1 Objective GENERAL: The patient is well developed, well nourished, obese white female, in no apparent distress. HEENT: Eyes, pupils are equal and responsive to light and accommodation. Extraocular movements are intact. NECK: Supple without lymphadenopathy. CHEST: Lungs are clear to auscultation bilaterally without wheeze or rales. HEART: Regular rhythm and rate. S1 and S2 normal without murmurs, ABDOMEN: Soft, nontender, and nondistended. Positive bowel sounds. Morbid obesity EXTREMITIES: Negative for clubbing, cyanosis, or or edema. RECTAL/GENITAL: Refused. NEUROLOGIC: Cranial nerves II through XII are grossly intact without focal deficits. Motor strength is 5/5 bilaterally. Assessment/Plan Assessment/Plan 1. Shortness of breath due to Acute PE. 2. Diabetes type 2. 3. Renal calculi. 4. Hypertension. 5. Premature ventricular contractions. 6. History of uterine fibroids. 7. Morbid Obesity 8. hypomagnesium Plan: Heparin drip / Coumadin PO Discuss with patient with regard to treatment plan and transfer to [facility], Called [facility] transfer center Discuss with Dr. Lewis Monitor BS Mg IV X 2 gram Jovanny Goins MD Apr 02, 2016 15:15
--- NOTE | 2016-04-02 15:28 | Pulmonology Progress Note ---
Assessment/Plan Problems: (1) Pulmonary embolism (2) HTN (hypertension) (3) Diabetes Assessment/Plan continue heparin and coumadin until INR is more than 2 and overlap of 2 days. monitor bp No need to transfer to [facility], as there is no other treatment for PE right now. Pt could have benefited from Thrombolysis on presentation, but not any more. Subjective ROS Limited/Unobtainable: No Constitutional: Reports: no symptoms HEENT: Repors: no symptoms Allergies: Coded Allergies: No Known Allergies (Unverified , 03/30/16) Objective Last 24 Hour Vital Signs Date Time Temp Pulse Resp B/P Pulse Ox O2 Delivery O2 Flow Rate FiO2 04/02/16 12:00 97.0 68 18 135/70 94 Room Air 04/02/16 09:18 71 134/70 04/02/16 08:50 97.2 71 18 134/70 92 Room Air 04/02/16 04:08 64 04/02/16 04:00 97.2 70 20 108/67 94 Room Air 04/02/16 00:05 65 04/02/16 00:00 97.0 65 20 116/71 95 04/01/16 21:39 76 136/84 04/01/16 20:00 97.3 76 18 136/84 96 Room Air 04/01/16 20:00 77 04/01/16 16:00 96.8 85 20 139/88 88 Room Air 04/01/16 16:00 82 Intake and Output 04/01/16 04/02/16 19:00 07:00 Intake Total 240 ml 355 ml Balance 240 ml 355 ml Intake Oral 240 ml IV Total 355 ml # Voids 2 1 General Appearance: WD/WN HEENT: normocephalic Respiratory/Chest: chest wall non-tender, lungs clear Cardiovascular: normal peripheral pulses, normal rate Abdomen: normal bowel sounds, soft, non tender Extremities: no cyanosis Skin: no rash Neurologic/Psychiatric: machine buffer II-XII grossly normal Laboratory Tests 04/01/16 18:15: White Blood Count 14.1H, Red Blood Count 4.42, Hemoglobin 15.1, Hematocrit 42.3 , Mean Corpuscular Volume 96, Mean Corpuscular Hemoglobin 34.1H, Mean Corpuscular Hemoglobin Concent 35.6, Red Cell Distribution Width 11.8, Platelet Count 267, Mean Platelet Volume 8.1, Neutrophils (%) (Auto) 68.3, Lymphocytes (% ) (Auto) 21.2, Monocytes (%) (Auto) 7.0, Eosinophils (%) (Auto) 2.4, Basophils ( %) (Auto) 1.1, Activated Partial Thromboplast Time 33, Ferritin 241H 04/02/16 00:50: Activated Partial Thromboplast Time 101H 04/02/16 07:30: Activated Partial Thromboplast Time 82H, Protein C Activity [Pending], Protein S Activity [Pending], Factor V Mutation [Pending], Prothrombin Gene Mutation [ Pending], Prothrombin Gene Shared Component [Pending], Sodium Level 140, Potassium Level 4.0, Chloride Level 97L, Carbon Dioxide Level 24, Anion Gap 19H , Blood Urea Nitrogen 23, Creatinine 1.0H, Estimat Glomerular Filtration Rate 57.1, Glucose Level 222H, Calcium Level 9.5, Magnesium Level 1.6L Current Medications Medications (Trade) Dose Ordered Sig/Martha Route PRN Reason Start Time Stop Time Status Last Admin Dose Admin Acetaminophen 650 mg 650 mg Q6H PRN ORAL For Pain 03/30/16 19:00 04/29/16 18:59 Aspirin (ASA) 81 mg DAILY ORAL 03/31/16 09:00 04/30/16 08:59 04/02/16 09:18 Atenolol (Tenormin) 50 mg Q12HR ORAL 03/30/16 21:00 04/29/16 20:59 04/02/16 09:18 Dextrose (Dextrose 50%) STAT PRN IV Hypoglycemia 03/30/16 18:00 04/29/16 17:59 Heparin Sodium/ Dextrose (Heparin) 500 ml @ 37.966 mls/ hr Q24H IV 04/02/16 01:23 05/01/16 17:59 04/02/16 05:55 Insulin Aspart (NovoLOG) BEFORE MEALS AND HS SUBQ 03/30/16 21:00 04/29/16 20:59 Metformin HCl (Glucophage) 1,000 mg BID ORAL 03/30/16 20:00 04/29/16 19:59 Ranitidine HCl (Zantac) 75 mg BID ORAL 03/31/16 09:00 04/30/16 08:59 04/02/16 09:17 Repaglinide (Prandin) 4 mg TIAC ORAL 03/31/16 06:30 04/30/16 06:29 04/02/16 12:36 EDMOND BERNAL Apr 02, 2016 15:28
--- NOTE | 2016-04-02 19:06 | General Progress Note ---
Assessment/Plan Assessment/Plan ASSESSMENT: 1. Bilateral pulmonary embolism, on CTA. Final imaging study pending in EMR. Patient sustained pulmonary embolism after a seven-hour car ride, thus provoking factor. She will need a total of three to six months of anticoagulation. No intervention per pulm, and continue coumadin anticoagulation 2. Leukocytosis 2/2 reactive process 3. Shortness of breath, chest pain, rule out acute coronary syndrome. 4. Morbid obesity. 5. Diabetes mellitus. 6. Hypertension. 7. History of renal calculi. 8. Premature ventricular contractions. 9. Uterine fibroids. RECOMMENDATIONS: 1. Monitor counts 2. Send for hypercoagulable workup. 3. Will need 3-6 months of anticoag, either coumadin or xarelto. At this time, continue coumadin, have discussed with patient its risks and benefits and she will continue at [facility] time 4. Maintain INR between 2-3 5. Off xarelto at this time 6. Continue heparin drip. 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 GI prophylaxis with Pepcid. 9. Discussed with staff. Thank you, Richardson Alcantar MD Subjective Constitutional: Reports: no symptoms HEENT: Reports: no symptoms Cardiovascular: Reports: no symptoms Respiratory: Reports: no symptoms Gastrointestinal/Abdominal: Reports: no symptoms Genitourinary: Reports: no symptoms Neurologic/Psychiatric: Reports: no symptoms Endocrine: Reports: no symptoms Hematologic/Lymphatic: Reports: anemia Allergies: Coded Allergies: No Known Allergies (Unverified , 03/30/16) Subjective stable, no fevers or chills reported Objective Last 24 Hour Vital Signs Date Time Temp Pulse Resp B/P Pulse Ox O2 Delivery O2 Flow Rate FiO2 04/02/16 16:00 96.1 73 15 137/82 95 Room Air 04/02/16 12:00 97.0 68 18 135/70 94 Room Air 04/02/16 09:18 71 134/70 04/02/16 08:50 97.2 71 18 134/70 92 Room Air 04/02/16 04:08 64 04/02/16 04:00 97.2 70 20 108/67 94 Room Air 04/02/16 00:05 65 04/02/16 00:00 97.0 65 20 116/71 95 04/01/16 21:39 76 136/84 04/01/16 20:00 97.3 76 18 136/84 96 Room Air 04/01/16 20:00 77 Intake and Output 04/01/16 04/02/16 19:00 07:00 Intake Total 240 ml 355 ml Balance 240 ml 355 ml Intake Oral 240 ml IV Total 355 ml # Voids 2 1 Laboratory Tests 04/02/16 00:50: Activated Partial Thromboplast Time 101H 04/02/16 07:30: Activated Partial Thromboplast Time 82H, Protein C Activity [Pending], Protein S Activity [Pending], Factor V Mutation [Pending], Prothrombin Gene Mutation [ Pending], Prothrombin Gene Shared Component [Pending], Sodium Level 140, Potassium Level 4.0, Chloride Level 97L, Carbon Dioxide Level 24, Anion Gap 19H , Blood Urea Nitrogen 23, Creatinine 1.0H, Estimat Glomerular Filtration Rate 57.1, Glucose Level 222H, Calcium Level 9.5, Magnesium Level 1.6L Height (Feet): 5 Height (Inches): 5.00 Weight (Pounds): 279 General Appearance: no apparent distress EENT: TMs normal Neck: normal alignment Cardiovascular: normal rate Respiratory/Chest: lungs clear Abdomen: non tender Extremities: normal range of motion Edema: 1+ Leg (L), 1+ Leg (R) Edema: moderate edema Neurologic: alert Skin: warm/dry Richardson Alcantar Apr 02, 2016 19:06
--- NOTE | 2016-04-02 19:49 | Cardiac Electrophysiology PN ---
Assessment/Plan Problem List: (1) Respiratory distress (2) HTN (hypertension) (3) Diabetes (4) Pulmonary embolism (5) Shortness of breath Status: stable, progressing, ambulating well Status Narrative Ms. Joaquin has bilateral pulm emboli incl small nonocclusive saddle embolus on CT. Venous duplex was negative for DVT She had a long car trip prior to symptoms - likely cause of current presentation. Stress nuclear study shows a possible reversible mid- basal lateral perfusion defect w/ ischemia. ECHO is essentially normal. Assessment/Plan She will continue on iv heparin and transition to oral anticoagulation, either warfarin or NOAC Hematology following. With regard to abnl stress nuclear study, the study was technically difficult, and perfusion defect may be a false positive. I would recommend CT coronary angiogram - can be done as outpt as all sx can be explained by acute PE. Subjective ROS Limited/Unobtainable: No Subjective Ms. Joaquin has noted improvement in exertional dyspnea. No CP Objective Last 24 Hour Vital Signs Date Time Temp Pulse Resp B/P Pulse Ox O2 Delivery O2 Flow Rate FiO2 04/02/16 16:00 96.1 73 15 137/82 95 Room Air 04/02/16 12:00 97.0 68 18 135/70 94 Room Air 04/02/16 09:18 71 134/70 04/02/16 08:50 97.2 71 18 134/70 92 Room Air 04/02/16 04:08 64 04/02/16 04:00 97.2 70 20 108/67 94 Room Air 04/02/16 00:05 65 04/02/16 00:00 97.0 65 20 116/71 95 04/01/16 21:39 76 136/84 04/01/16 20:00 97.3 76 18 136/84 96 Room Air 04/01/16 20:00 77 General Appearance: WD/WN, no apparent distress, alert, obese EENT: PERRL/EOMI Neck: supple, no JVD Rhythm: NSR Cardiovascular: normal rate, regular rhythm, no gallop/murmur Respiratory/Chest: lungs clear Abdomen: normal bowel sounds, non tender, soft Extremities: no calf tenderness, no swelling Intake and Output 04/01/16 04/02/16 19:00 07:00 Intake Total 240 ml 355 ml Balance 240 ml 355 ml Intake Oral 240 ml IV Total 355 ml # Voids 2 1 Laboratory Tests Test 04/02/16 00:50 04/02/16 07:30 Activated Partial Thromboplast Time 101 SEC (23-33) H 82 SEC (23-33) H Protein C Activity Pending Protein S Activity Pending Factor V Mutation Pending Prothrombin Gene Mutation Pending Prothrombin Gene Shared Component Pending Sodium Level 140 mEQ/L (135-145) Potassium Level 4.0 mEQ/L (3.4-4.9) Chloride Level 97 mEQ/L (98-107) L Carbon Dioxide Level 24 mEQ/L (20-30) Anion Gap 19 (5-15) H Blood Urea Nitrogen 23 mg/dL (7-23) Creatinine 1.0 mg/dL (0.5-0.9) H Estimat Glomerular Filtration Rate 57.1 mL/min (>60) Glucose Level 222 mg/dL (74-106) H Calcium Level 9.5 mg/dL (8.6-10.2) Magnesium Level 1.6 mg/dL (1.7-2.5) ANITA SOTO Apr 02, 2016 19:49
[2016-04-03 04:00] VITALS: BP 122/73
[2016-04-03] MEDS ORDERED: Heparin 5000 units/ml inj IV ONE (06:00)
[2016-04-03] MEDS: Heparin 25,000u/D5W 500ml (VTE/AF) IV SCH ×4 (06:02→20:58)
[2016-04-03] MEDS: NovoLOG Insulin Flexpen SUBQ SCH ×4 (06:19→20:59)
[2016-04-03 08:00] VITALS: BP 112/63
[2016-04-03] MEDS: Aspirin Baby 81mg ORAL SCH (08:32)
[2016-04-03] MEDS: Repaglinide 1mg tab ORAL SCH ×3 (08:32→17:56)
[2016-04-03] MEDS: metFORMIN 500mg tab ORAL SCH ×2 (08:39→17:57)
--- NOTE | 2016-04-03 09:18 | General Progress Note ---
Assessment/Plan Assessment/Plan ASSESSMENT: 1. Bilateral pulmonary embolism, on CTA. Final imaging study pending in EMR. Patient sustained pulmonary embolism after a seven-hour car ride, thus provoking factor. She will need a total of 3-6 mo 2. Leukocytosis 2/2 reactive process 3. Shortness of breath, chest pain, rule out acute coronary syndrome. 4. Morbid obesity. 5. Diabetes mellitus. 6. Hypertension. 7. History of renal calculi. 8. Premature ventricular contractions. 9. Uterine fibroids. RECOMMENDATIONS: 1. Monitor counts 2. Send for hypercoagulable workup. 3. Will need 3-6 months of anticoag, either coumadin or xarelto. At this time, continue coumadin, have discussed with patient its risks and benefits and she will continue at tis time 4. Maintain INR between 2-3 5. Off xarelto at this time 6. Continue heparin drip. 7. 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 GI prophylaxis with Pepcid. 9. Discussed with staff. Thank you, Marshal Alcantar MD Subjective Constitutional: Reports: no symptoms HEENT: Reports: no symptoms Cardiovascular: Reports: no symptoms Respiratory: Reports: no symptoms Gastrointestinal/Abdominal: Reports: no symptoms Genitourinary: Reports: no symptoms Neurologic/Psychiatric: Reports: no symptoms Endocrine: Reports: no symptoms Hematologic/Lymphatic: Reports: anemia Allergies: Coded Allergies: No Known Allergies (Unverified , 03/30/16) Subjective not bleeding, no fevers, or chills Objective Last 24 Hour Vital Signs Date Time Temp Pulse Resp B/P Pulse Ox O2 Delivery O2 Flow Rate FiO2 04/03/16 08:32 69 122/73 04/03/16 04:00 97.0 69 19 122/73 94 Room Air 04/03/16 03:53 61 04/02/16 23:53 97.0 60 18 114/67 95 Room Air 04/02/16 21:25 74 133/81 04/02/16 20:00 71 04/02/16 20:00 97.7 74 13 133/81 92 Room Air 04/02/16 16:00 72 04/02/16 16:00 96.1 73 15 137/82 95 Room Air 04/02/16 12:00 97.0 68 18 135/70 94 Room Air 04/02/16 09:18 71 134/70 Intake and Output 04/02/16 04/03/16 19:00 07:00 Intake Total 1217.626 ml 1061.932 ml Balance 1217.626 ml 1061.932 ml Intake Oral 600 ml 720 ml IV Total 617.626 ml 341.932 ml # Voids 3 5 Laboratory Tests 04/03/16 04:35: Activated Partial Thromboplast Time 58H Height (Feet): 5 Height (Inches): 5.00 Weight (Pounds): 279 General Appearance: no apparent distress EENT: normal ENT inspection Neck: supple Cardiovascular: regular rhythm Respiratory/Chest: normal breath sounds Abdomen: non tender Extremities: non-tender Edema: no edema noted Leg (L), no edema noted Leg (R) Edema: mild edema Neurologic: alert Skin: warm/dry MARSHAL ALCANTAR Apr 03, 2016 09:18
[2016-04-03 10:24] LABS: PROTHROMBIN TIME 10.4 SEC (9.30-11.50)
[2016-04-03] MEDS ORDERED: Xarelto 10mg tab ORAL SCH (11:00)
[2016-04-03] MEDS ORDERED: Heparin 2000 units/Ns 1000ml IV ONE (11:45)
[2016-04-03 12:00] VITALS: BP 118/68
--- NOTE | 2016-04-03 12:42 | Cardiology Progress Note ---
Assessment/Plan Problem List: (1) Respiratory distress (2) HTN (hypertension) (3) Diabetes (4) Pulmonary embolism (5) Shortness of breath Status: stable, progressing Status Narrative Ms. Joaquin has bilateral pulm emboli incl small nonocclusive saddle embolus on CT, poss embolic from LEs after recent long car trip. Venous duplex was negative for DVT IV heparin continues and warfarin is being started. Stress nuclear study shows a possible reversible mid- basal lateral perfusion defect w/ ischemia. ECHO is essentially normal. Her symptoms are improving gradually. Assessment/Plan She will continue on iv heparin and transition to oral anticoagulation w warfarin Hematology following. With regard to abnl stress nuclear study, the study was technically difficult, and perfusion defect may be a false positive. I would recommend CT coronary angiogram - can be done as outpt as all sx can be explained by acute PE. Continue asa, b claudia and would start statin Subjective ROS Limited/Unobtainable: No Subjective Mrs. Joaquin is dyspneic w/ walking in room at times, though sx have improved. No CP or other c/o Objective Last 24 Hour Vital Signs Date Time Temp Pulse Resp B/P Pulse Ox O2 Delivery O2 Flow Rate FiO2 04/03/16 08:32 69 122/73 04/03/16 08:00 97.1 66 20 112/63 95 Room Air 04/03/16 04:00 97.0 69 19 122/73 94 Room Air 04/03/16 03:53 61 04/02/16 23:53 97.0 60 18 114/67 95 Room Air 04/02/16 21:25 74 133/81 04/02/16 20:00 71 04/02/16 20:00 97.7 74 13 133/81 92 Room Air 04/02/16 16:00 72 04/02/16 16:00 96.1 73 15 137/82 95 Room Air General Appearance: WD/WN, alert, obese Neck: supple, no JVD Rhythm: NSR Cardiovascular: normal rate, regular rhythm, no gallop/murmur Respiratory/Chest: lungs clear Abdomen: non tender, soft Extremities: no swelling Intake and Output 04/02/16 04/03/16 19:00 07:00 Intake Total 1217.626 ml 1061.932 ml Balance 1217.626 ml 1061.932 ml Intake Oral 600 ml 720 ml IV Total 617.626 ml 341.932 ml # Voids 3 5 Laboratory Tests Test 04/03/16 04:35 04/03/16 09:55 Activated Partial Thromboplast Time 58 SEC (23-33) H Prothrombin Time 10.4 SEC (9.30-11.50) Prothromb Time International Ratio 1.0 (0.9-1.1) ANITA ACE Apr 03, 2016 12:41
--- NOTE | 2016-04-03 12:59 | Pulmonology Progress Note ---
Assessment/Plan Assessment/Plan ASSSESSMENT bilateral PE chest pain r/t PE hypoxemia SOB HTN DM moderate pulmonary HTN obesity PLAN OF CARE tele CTA c/w bilateral PE Venous Duplex BLE negative on heparin drip and Coumadin to reach therapeutic INR, INR still subtherapeutic troponin x 4 negative, ECG - SR, no ST changes, therefore r/o for acute PA cardio follows ECHO with EF 60-65% and RVSP of 49 c/w moderate pulmonary HTN stress test -Apparent reversible perfusion abnormality in the mid to basal aspect of the lateral wall compatible with ischemia in the distribution of the circumflex artery. Correlation with wall motion was not possible on this exam. per cardio - stress test was technically difficult, and perfusion defect may be a false positive. she recommended CT coronary angiogram - which can be done as outpt as all sx can be explained by acute PE. marla follows patient will need anticoagulation for 3-6 months workup for hypercoagulability initiated by marla continue ASA check lipid panel BP management with BB, stable BS management with oral antiglycemic and SS of insulin prn, check HgA1c GI prophylaxis case discussed and evaluated by supervising physician Subjective Allergies: Coded Allergies: No Known Allergies (Unverified , 03/30/16) Subjective on heparin drip less SOB, on RA sat stable denies chest pain, palpitations afebrile, no leucocytosis BP and BS controlled Objective Last 24 Hour Vital Signs Date Time Temp Pulse Resp B/P Pulse Ox O2 Delivery O2 Flow Rate FiO2 04/03/16 08:32 69 122/73 04/03/16 08:00 97.1 66 20 112/63 95 Room Air 04/03/16 04:00 97.0 69 19 122/73 94 Room Air 04/03/16 03:53 61 04/02/16 23:53 97.0 60 18 114/67 95 Room Air 04/02/16 21:25 74 133/81 04/02/16 20:00 71 04/02/16 20:00 97.7 74 13 133/81 92 Room Air 04/02/16 16:00 72 04/02/16 16:00 96.1 73 15 137/82 95 Room Air Intake and Output 04/02/16 04/03/16 19:00 07:00 Intake Total 1217.626 ml 1061.932 ml Balance 1217.626 ml 1061.932 ml Intake Oral 600 ml 720 ml IV Total 617.626 ml 341.932 ml # Voids 3 5 General Appearance: WD/WN, no acute distress, other - A/A/O x 3 obese female in NAD HEENT: normocephalic, atraumatic, anicteric, mucous membranes moist, PERRL Respiratory/Chest: chest wall non-tender, lungs clear, no respiratory distress , no accessory muscle use Cardiovascular: normal peripheral pulses, normal rate, regular rhythm, no JVD Abdomen: normal bowel sounds, soft, non tender - obese Genitourinary: normal external genitalia Extremities: no edema, pedal pulses normal Neurologic/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: 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, no motor/sensory deficits, alert, oriented x 3, responsive, normal mood/affect Lymphatic: no neck adenopathy Musculoskeletal: normal muscle bulk Laboratory Tests 04/03/16 04:35: Activated Partial Thromboplast Time 58H 04/03/16 09:55: Prothrombin Time 10.4, Prothromb Time International Ratio 1.0 Current Medications Medications (Trade) Dose Ordered Sig/Martha Route PRN Reason Start Time Stop Time Status Last Admin Dose Admin Acetaminophen (Tylenol) 650 mg Q6H PRN ORAL For Pain 03/30/16 19:00 04/29/16 18:59 Aspirin (ASA) 81 mg DAILY ORAL 03/31/16 09:00 04/30/16 08:59 04/03/16 08:32 Atenolol (Tenormin) 50 mg Q12HR ORAL 03/30/16 21:00 04/29/16 20:59 04/03/16 08:32 Dextrose (Dextrose 50%) STAT PRN IV Hypoglycemia 03/30/16 18:00 04/29/16 17:59 Heparin Sodium/ Dextrose (Heparin) 500 ml @ 43.028 mls/ hr Q24H IV 04/03/16 12:00 05/03/16 11:59 04/03/16 12:09 Insulin Aspart (NovoLOG) BEFORE MEALS AND HS SUBQ 03/30/16 21:00 04/29/16 20:59 Metformin HCl (Glucophage) 1,000 mg BID ORAL 03/30/16 20:00 04/29/16 19:59 Ranitidine HCl (Zantac) 75 mg BID ORAL 03/31/16 09:00 04/30/16 08:59 04/03/16 08:37 Repaglinide (Prandin) 4 mg TID ORAL 04/03/16 09:00 05/03/16 08:59 04/03/16 12:37 Warfarin Sodium (Coumadin) 7.5 mg ONCE ONCE ORAL 04/03/16 17:00 04/03/16 17:01 Warfarin Sodium 1 ea 1 ea DAILY PRN MISC Per rx protocol 04/03/16 11:45 05/03/16 11:44 Efrain (Aníbal)Mame NP Apr 03, 2016 12:59
[2016-04-03] MEDS ORDERED: DuoNeb 0.5-3(2.5)mg/3ml neb HHN PRN (13:00)
--- NOTE | 2016-04-03 13:43 | Internal Med Progress Note ---
Subjective Date of Service: Apr 03, 2016 Physician Name Eris Barkley Attending Physician Jovanny Goins MD Current Medications Medications (Trade) Dose Ordered Sig/Martha Route PRN Reason Start Time Stop Time Status Last Admin Dose Admin Acetaminophen (Tylenol) 650 mg Q6H PRN ORAL For Pain 03/30/16 19:00 04/29/16 18:59 Albuterol/ Ipratropium (DuoNeb 0.5-3(2.5)mg/3ml) 3 ml Q4H PRN HHN Shortness of Breath 04/03/16 13:00 04/08/16 12:59 Aspirin (ASA) 81 mg DAILY ORAL 03/31/16 09:00 04/30/16 08:59 04/03/16 08:32 Atenolol (Tenormin) 50 mg Q12HR ORAL 03/30/16 21:00 04/29/16 20:59 04/03/16 08:32 Dextrose (Dextrose 50%) STAT PRN IV Hypoglycemia 03/30/16 18:00 04/29/16 17:59 Heparin Sodium/ Dextrose (Heparin) 500 ml @ 43.028 mls/ hr Q24H IV 04/03/16 12:00 05/03/16 11:59 04/03/16 12:09 Insulin Aspart (NovoLOG) BEFORE MEALS AND HS SUBQ 03/30/16 21:00 04/29/16 20:59 Metformin HCl (Glucophage) 1,000 mg BID ORAL 03/30/16 20:00 04/29/16 19:59 Ranitidine HCl (Zantac) 75 mg BID ORAL 03/31/16 09:00 04/30/16 08:59 04/03/16 08:37 Repaglinide (Prandin) 4 mg TID ORAL 04/03/16 09:00 05/03/16 08:59 04/03/16 12:37 Warfarin Sodium (Coumadin) 7.5 mg ONCE ONCE ORAL 04/03/16 17:00 04/03/16 17:01 Warfarin Sodium 1 ea 1 ea DAILY PRN MISC Per rx protocol 04/03/16 11:45 05/03/16 11:44 Allergies: Coded Allergies: No Known Allergies (Unverified , 03/30/16) Constitutional: Reports: no symptoms HEENT: Reports: no symptoms Cardiovascular: Reports: chest pain Respiratory: Reports: shortness of breath Gastrointestinal/Abdominal: Reports: no symptoms Genitourinary: Reports: no symptoms Neurologic/Psychiatric: Reports: no symptoms Subjective 55 YO F admited with shortness of breath and pulmonary embolism. Cover for Int Med-Dr Goins. Await Transfer to [facility]. Patient refused Xarelto Objective Last Vital Signs Date Time Temp Pulse Resp B/P Pulse Ox O2 Delivery O2 Flow Rate FiO2 04/03/16 12:00 64 04/03/16 12:00 97.3 20 118/68 95 Room Air Laboratory Tests Test 04/03/16 04:35 04/03/16 09:55 Activated Partial Thromboplast Time 58 SEC (23-33) H Prothrombin Time 10.4 SEC (9.30-11.50) Prothromb Time International Ratio 1.0 (0.9-1.1) Intake and Output 04/02/16 04/03/16 19:00 07:00 Intake Total 1217.626 ml 1061.932 ml Balance 1217.626 ml 1061.932 ml Intake Oral 600 ml 720 ml IV Total 617.626 ml 341.932 ml # Voids 3 5 Objective General Appearance: WD/WN, no apparent distress, alert EENT: PERRL/EOMI, normal ENT inspection, TMs normal Neck: non-tender, normal alignment, supple Cardiovascular: normal peripheral pulses, normal rate, regular rhythm, no gallop/murmur, no JVD Respiratory/Chest: chest wall non-tender, decreased breath sounds, crackles/ rales, rhonchi - bilaterally, expiratory wheezing Abdomen: normal bowel sounds, non tender, soft, no organomegaly, no mass Extremities: normal range of motion, non-tender Neurologic: hourly associate II-XII grossly normal, no motor/sensory deficits Assessment/Plan Problem List: (1) Pulmonary embolism Assessment & Plan: Bilateral; left saddle embolus. Venous doppler neg. Start heparin drip and coumadin; D/C heparin when coumadin therapeutic. Patient refused Xarelto. (2) Hypoxemia Assessment & Plan: Due to pulm emboli (3) Shortness of breath Assessment & Plan: Due to pulmonary embolism. (4) Renal calculi (5) Diabetes Assessment & Plan: Cont glucophage and novolog sliding scale. (6) HTN (hypertension) Assessment & Plan: Cont atenolol (7) Chest pain Assessment & Plan: see nuclear cardiac stress test. See cardiology note. Reversible Perfusion defect with ischemia Status: not improved Assessment/Plan Transfer to [facility] for Pulmonary Embolism team ERIS Mcarthur Apr 03, 2016 13:43
[2016-04-03] MEDS ORDERED: Warfarin Sodium 7.5mg ORAL ONE ×2 (17:00)
[2016-04-03] MEDS ORDERED: NS 275ml ONE (17:12)
[2016-04-03] MEDS ORDERED: BYETTA 10 MCG SUBQ SCH ×2 (18:30)
[2016-04-03 20:00] VITALS: BP 120/69
[2016-04-04] VITALS: BP 124/69
[2016-04-04 04:00] VITALS: BP 134/82
[2016-04-04 05:48] LABS: EOSINOPHILS % (AUTO) 9.2 % (0.0-3.0); LYMPHOCYTES % (AUTO) 25.6 % (20.0-45.0); MEAN CORPUSCULAR HEMOGLOBIN 33.5 PG (27.0-31.0); MEAN CORPUSCULAR HGB CONC 34.5 G/DL (32.0-36.0); MEAN CORPUSCULAR VOLUME 97 FL (80-99); MEAN PLATELET VOLUME 8.2 FL (6.5-10.1); MONOCYTES % (AUTO) 7.7 % (1.0-10.0); NEUTROPHILS % (AUTO) 56.6 % (45.0-75.0); PLATELET COUNT 209 K/UL (150-450); RED BLOOD COUNT 3.67 M/UL (4.20-5.40); RED CELL DISTRIBUTION WIDTH 12.1 % (11.6-14.8); WHITE BLOOD COUNT 8.6 K/UL (4.8-10.8)
[2016-04-04 05:55] LABS: CALCIUM 9.5 mg/dL (8.6-10.2); CHOLESTEROL/HDL RATIO 6.5 (3.3-4.4); CREATININE 1.1 mg/dL (0.5-0.9); GLOMERULAR FILTRATION RATE 51.2 mL/min (>60); POTASSIUM 4.1 mEQ/L (3.4-4.9)
[2016-04-04 05:56] LABS: INR 1.1 (0.9-1.1); PROTHROMBIN TIME 10.9 SEC (9.30-11.50)
[2016-04-04 06:06] LABS: HEMOGLOBIN A1C 7.5 % (< 6.0)
[2016-04-04] MEDS: NovoLOG Insulin Flexpen SUBQ SCH ×4 (06:30→21:00)
--- NOTE | 2016-04-04 06:38 | General Progress Note ---
Assessment/Plan Assessment/Plan ASSESSMENT: 1. Bilateral pulmonary embolism, on CTA. Final imaging study pending in EMR. Patient sustained pulmonary embolism after a seven-hour car ride, thus provoking factor. She will need a total of 3-6 mo 2. Leukocytosis 2/2 reactive process 3. Shortness of breath, chest pain, rule out acute coronary syndrome. 4. Morbid obesity. 5. Diabetes mellitus. 6. Hypertension. 7. History of renal calculi. 8. Premature ventricular contractions. 9. Uterine fibroids. RECOMMENDATIONS: 1. Tumor markers ordered 2. Continue coumadin 3. Will need 3-6 months of anticoag 4. Maintain INR between 2-3 5. Off xarelto at this time 6. Continue heparin drip. 7. 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 GI prophylaxis with Pepcid. 9. Discussed with staff. Thank you, Marshal Alcantar MD Subjective Constitutional: Reports: no symptoms HEENT: Reports: no symptoms Cardiovascular: Reports: no symptoms Respiratory: Reports: no symptoms Genitourinary: Reports: no symptoms Neurologic/Psychiatric: Reports: no symptoms Endocrine: Reports: no symptoms Hematologic/Lymphatic: Reports: anemia Allergies: Coded Allergies: No Known Allergies (Unverified , 03/30/16) Subjective not bleeding, no fevers, or chills, no bleeding Objective Last 24 Hour Vital Signs Date Time Temp Pulse Resp B/P Pulse Ox O2 Delivery O2 Flow Rate FiO2 04/04/16 04:00 97.0 68 18 134/82 96 Room Air 04/04/16 04:00 62 04/04/16 00:00 59 04/04/16 00:00 97.2 58 18 124/69 96 Room Air 04/03/16 20:57 63 120/69 04/03/16 20:00 67 04/03/16 20:00 97.9 63 18 120/69 99 Room Air 04/03/16 16:00 65 04/03/16 12:00 64 04/03/16 12:00 97.3 59 20 118/68 95 Room Air 04/03/16 08:32 69 122/73 04/03/16 08:00 97.1 66 20 112/63 95 Room Air 04/03/16 08:00 66 Intake and Output 04/03/16 04/04/16 19:00 07:00 Intake Total 759 ml 704 ml Balance 759 ml 704 ml Intake Oral 200 ml 360 ml IV Total 559 ml 344 ml # Voids 2 2 Laboratory Tests 04/03/16 09:55: Prothrombin Time 10.4, Prothromb Time International Ratio 1.0 04/03/16 14:38: Activated Partial Thromboplast Time 71H 04/04/16 05:25: Prothrombin Time 10.9, Prothromb Time International Ratio 1.1, Activated Partial Thromboplast Time 75H, White Blood Count 8.6, Red Blood Count 3.67L, Hemoglobin 12.3, Hematocrit 35.7L, Mean Corpuscular Volume 97, Mean Corpuscular Hemoglobin 33.5H, Mean Corpuscular Hemoglobin Concent 34.5, Red Cell Distribution Width 12.1, Platelet Count 209, Mean Platelet Volume 8.2, Neutrophils (%) (Auto) 56.6, Lymphocytes (%) (Auto) 25.6, Monocytes (%) (Auto) 7.7, Eosinophils (%) (Auto) 9.2H, Basophils (%) (Auto) 1.0, Sodium Level 137, Potassium Level 4.1, Chloride Level 97L, Carbon Dioxide Level 25, Anion Gap 15, Blood Urea Nitrogen 23, Creatinine 1.1H, Estimat Glomerular Filtration Rate 51.2 , Glucose Level 204H, Hemoglobin A1c 7.5H, Calcium Level 9.5, Triglycerides Level 234H, Cholesterol Level 208H, LDL Cholesterol 129H, HDL Cholesterol 32, Cholesterol/HDL Ratio 6.5H Height (Feet): 5 Height (Inches): 5.00 Weight (Pounds): 279 General Appearance: alert EENT: normal ENT inspection Neck: supple Cardiovascular: regular rhythm Respiratory/Chest: lungs clear Abdomen: no organomegaly Extremities: non-tender Edema: mild edema Neurologic: alert Skin: warm/dry MARSHAL ALCANTAR Apr 04, 2016 06:38
[2016-04-04 08:00] VITALS: BP 135/87
[2016-04-04] MEDS: Repaglinide 1mg tab ORAL SCH ×3 (08:23→16:41)
[2016-04-04] MEDS: BYETTA 10 MCG SUBQ SCH ×2 (08:40→18:13)
[2016-04-04] MEDS: Aspirin Baby 81mg ORAL SCH (08:41)
[2016-04-04] MEDS: Heparin 25,000u/D5W 500ml (VTE/AF) IV SCH ×2 (08:45→21:14)
--- NOTE | 2016-04-04 09:20 | Pulmonology Progress Note ---
Assessment/Plan Assessment/Plan ASSESSMENT bilateral PE chest pain r/t PE hypoxemia SOB HTN DM moderate pulmonary HTN obesity PLAN OF CARE tele CTA c/w bilateral PE Venous Duplex BLE negative on heparin drip and Coumadin to reach therapeutic INR, INR still subtherapeutic troponin x 4 negative, ECG - SR, no ST changes, therefore r/o for acute CO cardio follows ECHO with EF 60-65% and RVSP of 49 c/w moderate pulmonary HTN stress test -Apparent reversible perfusion abnormality in the mid to basal aspect of the lateral wall compatible with ischemia in the distribution of the circumflex artery. Correlation with wall motion was not possible on this exam. per cardio - stress test was technically difficult, and perfusion defect may be a false positive. she recommended CT coronary angiogram - which can be done as outpt as all sx can be explained by acute PE. lipid panel with elevated TC and LDL, will add Fish oil and therapeutic life style changes; cousnel on low fat cardiac diabetic diet patient will fup as outpatient with PMD marla follows patient will need anticoagulation for 3-6 months workup for hypercoagulability initiated by marla continue ASA BP management with BB, stable BS management with oral antiglycemic, [place] and SS of insulin prn, HgA1c- 7.5 dc Metformin ( per patient request,-due to stomach upset), change time of Prandin and Byetta: Prandin 10 min before meals and Byetta bid 15 min after GI prophylaxis case discussed and evaluated by supervising physician Subjective Allergies: Coded Allergies: No Known Allergies (Unverified , 03/30/16) Subjective on heparin drip denies SOB, on RA sat stable denies chest pain, palpitations afebrile, no leucocytosis BP and BS controlled Objective Last 24 Hour Vital Signs Date Time Temp Pulse Resp B/P Pulse Ox O2 Delivery O2 Flow Rate FiO2 04/04/16 08:42 68 135/87 04/04/16 08:31 65 18 Room Air 04/04/16 04:00 97.0 68 18 134/82 96 Room Air 04/04/16 04:00 62 04/04/16 00:00 59 04/04/16 00:00 97.2 58 18 124/69 96 Room Air 04/03/16 20:57 63 120/69 04/03/16 20:00 67 04/03/16 20:00 97.9 63 18 120/69 99 Room Air 04/03/16 16:00 65 04/03/16 12:00 64 04/03/16 12:00 97.3 59 20 118/68 95 Room Air Intake and Output 04/03/16 04/04/16 19:00 07:00 Intake Total 759 ml 1073 ml Balance 759 ml 1073 ml Intake Oral 200 ml 600 ml IV Total 559 ml 473 ml # Voids 2 4 Objective General Appearance: WD/WN, no acute distress, other - A/A/O x 3 obese female in NAD HEENT: normocephalic, atraumatic, anicteric, mucous membranes moist, PERRL Respiratory/Chest: chest wall non-tender, lungs clear, no respiratory distress , no accessory muscle use Cardiovascular: normal peripheral pulses, normal rate, regular rhythm, no JVD Abdomen: normal bowel sounds, soft, non tender - obese Genitourinary: normal external genitalia Extremities: no edema, pedal pulses normal 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5H, Mean Corpuscular Hemoglobin Concent 34.5, Red Cell Distribution Width 12.1, Platelet Count 209, Mean Platelet Volume 8.2, Neutrophils (%) (Auto) 56.6, Lymphocytes (%) (Auto) 25.6, Monocytes (%) (Auto) 7.7, Eosinophils (%) (Auto) 9.2H, Basophils (%) (Auto) 1.0, Sodium Level 137, Potassium Level 4.1, Chloride Level 97L, Carbon Dioxide Level 25, Anion Gap 15, Blood Urea Nitrogen 23, Creatinine 1.1H, Estimat Glomerular Filtration Rate 51.2 , Glucose Level 204H, Hemoglobin A1c 7.5H, Calcium Level 9.5, Triglycerides Level 234H, Cholesterol Level 208H, LDL Cholesterol 129H, HDL Cholesterol 32, Cholesterol/HDL Ratio 6.5H Current Medications Medications (Trade) Dose Ordered Sig/Martha Route PRN Reason Start Time Stop Time Status Last Admin Dose Admin Acetaminophen (Tylenol) 650 mg Q6H PRN ORAL For Pain 03/30/16 19:00 04/29/16 18:59 Albuterol/ Ipratropium (DuoNeb 0.5-3(2.5)mg/3ml) 3 ml Q4H PRN HHN Shortness of Breath 04/03/16 13:00 04/08/16 12:59 Aspirin (ASA) 81 mg DAILY ORAL 03/31/16 09:00 04/30/16 08:59 04/04/16 08:41 Atenolol (Tenormin) 50 mg Q12HR ORAL 03/30/16 21:00 04/29/16 20:59 04/04/16 08:42 Dextrose (Dextrose 50%) STAT PRN IV Hypoglycemia 03/30/16 18:00 04/29/16 17:59 Heparin Sodium/ Dextrose (Heparin) 500 ml @ 43.028 mls/ hr Q24H IV 04/03/16 12:00 05/03/16 11:59 04/04/16 08:45 Insulin Aspart (NovoLOG) BEFORE MEALS AND HS SUBQ 03/30/16 21:00 04/29/16 20:59 Metformin HCl (Glucophage) 1,000 mg BIAC ORAL 04/04/16 16:30 05/04/16 16:29 Patient Own Medication (Patient's Own Med) 1 ea BIAC SUBQ 04/04/16 08:00 05/04/16 07:59 04/04/16 08:40 Ranitidine HCl (Zantac) 75 mg BID ORAL 03/31/16 09:00 04/30/16 08:59 04/04/16 08:42 Repaglinide (Prandin) 4 mg TIAC ORAL 04/04/16 07:45 05/04/16 07:44 04/04/16 08:23 Warfarin Sodium 1 ea 1 ea DAILY PRN MISC Per rx protocol 04/03/16 11:45 05/03/16 11:44 Zuniga ([facility] [place]),Mame JAIN Apr 04, 2016 09:19
--- NOTE | 2016-04-04 10:30 | Diagnostic Imaging Report ---
Indication: Dyspnea Comparison: None A single view chest radiograph was obtained. Findings: No definite infiltrate or pulmonary vascular congestion identified. The heart is enlarged. The aorta is mildly enlarged consistent with atherosclerotic vascular disease. The bones are osteopenic. Impression: No acute disease
--- NOTE | 2016-04-04 10:33 | Diagnostic Imaging Report ---
ndication: Shortness of breath Technique: IV administration nonionic contrast. Spiral acquisitions obtained from the lung bases to the lung apices. Multiplanar and 3-D reconstructions were generated. Total dose length product 1402 mGycm. CTDIvol(s) 12, 12, 54 mGy Comparison: None Findings: There are bilateral pulmonary emboli. On the right emboli are demonstrated at the distal main pulmonary artery, extending into the upper and lower lobar branches, and into the right middle lobe segmental branches. On the left, a small nonobstructive saddle embolus is seen in the distal main pulmonary artery, and emboli are demonstrated in multiple upper and lower lobe segmental branches. There is equivocal mild dilatation of the right ventricle. There is ectasia of the main pulmonary artery, which measures 3.8 cm in diameter and is slightly larger in caliber than the ascending thoracic aorta. The heart is upper limits of normal in size and general, and there is evidence of left ventricular muscular hypertrophy. There is no evidence of thoracic aortic aneurysm or dissection. Groundglass opacities are seen in the left infrahilar region. There is also some very focal consolidative opacity in the left infrahilar region. The lungs are otherwise clear. The pleural spaces are clear. There is no evidence of pericardial effusion. There are fairly dense left anterior descending and circumflex coronary calcifications. No mediastinal or hilar mass or adenopathy. The included portions of the thyroid are unremarkable. No axillary or chest wall mass or adenopathy. The anatomy is unremarkable. The bones demonstrate mild degenerative spondylosis changes. Impression: Positive for bilateral pulmonary emboli, as described. These may be submassive, as there is equivocal right ventricular dilatation and dilatation of the main pulmonary artery Left infrahilar groundglass and focal consolidative opacities. This may reflect pneumonia, could represent atelectasis or focal infarct changes as well. Evidence of left ventricular muscular hypertrophy Coronary artery calcifications Mild degenerative spondylosis Dr. Goins notified of this critical value finding at the time of interpretation The CT scanner at [facility] is accredited by the [employer] and the scans are performed using protocols designed to limit radiation exposure to as low as reasonably achievable to attain images of sufficient resolution adequate for diagnostic evaluation.
[2016-04-04 11:47] VITALS: BP 119/76
--- NOTE | 2016-04-04 12:29 | Cardiology Progress Note ---
Assessment/Plan Problem List: (1) Respiratory distress (2) HTN (hypertension) (3) Diabetes (4) Pulmonary embolism (5) Shortness of breath Status Narrative Ms. Joaquin has bilateral pulm emboli incl small nonocclusive saddle embolus on CT, poss embolic from LEs after recent long car trip. Venous duplex was negative for DVT she remains on IV heparin. Warfarin was started on 04/03. INR is subtherapeutic Stress nuclear study shows a possible reversible mid- basal lateral perfusion defect w/ ischemia. ECHO is essentially normal. Her symptoms are improving gradually. Assessment/Plan She will continue on iv heparin and transition to oral anticoagulation w warfarin Hematology following. she has abnl stress nuclear, w/ reversible perfusion defect, though study was technically difficult and may be false positive, though cannot r/o CAD. This can be further evaluated as outpt, w/ ct cor angiogram. She has no current anginal symptoms. Shoulder discomfort, which is mild and nonexertional, is atypical for angina. Will check lipids and start statin. continue asa , atenolol. Subjective ROS Limited/Unobtainable: No Subjective Cardiology for Dr. Gao Mrs. Joaquin notes improvement in dyspnea - able to walk in halls without oxygen. Has intermittent bilat shoulder pain, not associated w/ activity or movement. Mild sx. Objective Last 24 Hour Vital Signs Date Time Temp Pulse Resp B/P Pulse Ox O2 Delivery O2 Flow Rate FiO2 04/04/16 11:47 97.7 77 20 119/76 98 Room Air 04/04/16 08:42 68 135/87 04/04/16 08:31 65 18 Room Air 04/04/16 08:00 68 04/04/16 08:00 97.5 68 20 135/87 96 Room Air 04/04/16 04:00 97.0 68 18 134/82 96 Room Air 04/04/16 04:00 62 04/04/16 00:00 59 04/04/16 00:00 97.2 58 18 124/69 96 Room Air 04/03/16 20:57 63 120/69 04/03/16 20:00 67 04/03/16 20:00 97.9 63 18 120/69 99 Room Air 04/03/16 16:00 65 General Appearance: WD/WN, no apparent distress, alert EENT: PERRL/EOMI Neck: supple, normal inspection, no JVD Rhythm: NSR Cardiovascular: normal rate, regular rhythm, no gallop/murmur Respiratory/Chest: lungs clear Abdomen: non tender, soft Extremities: no swelling Intake and Output 04/03/16 04/04/16 19:00 07:00 Intake Total 759 ml 1073 ml Balance 759 ml 1073 ml Intake Oral 200 ml 600 ml IV Total 559 ml 473 ml # Voids 2 4 Laboratory Tests Test 04/03/16 14:38 04/04/16 05:25 Activated Partial Thromboplast Time 71 SEC (23-33) H 75 SEC (23-33) H White Blood Count 8.6 K/UL (4.8-10.8) Red Blood Count 3.67 M/UL (4.20-5.40) L Hemoglobin 12.3 G/DL (12.0-16.0) Hematocrit 35.7 % (37.0-47.0) L Mean Corpuscular Volume 97 FL (80-99) Mean Corpuscular Hemoglobin 33.5 PG (27.0-31.0) H Mean Corpuscular Hemoglobin Concent 34.5 G/DL (32.0-36.0) Red Cell Distribution Width 12.1 % (11.6-14.8) Platelet Count 209 K/UL (150-450) Mean Platelet Volume 8.2 FL (6.5-10.1) Neutrophils (%) (Auto) 56.6 % (45.0-75.0) Lymphocytes (%) (Auto) 25.6 % (20.0-45.0) Monocytes (%) (Auto) 7.7 % (1.0-10.0) Eosinophils (%) (Auto) 9.2 % (0.0-3.0) H Basophils (%) (Auto) 1.0 % (0.0-2.0) Prothrombin Time 10.9 SEC (9.30-11.50) Prothromb Time International Ratio 1.1 (0.9-1.1) Sodium Level 137 mEQ/L (135-145) Potassium Level 4.1 mEQ/L (3.4-4.9) Chloride Level 97 mEQ/L (98-107) L Carbon Dioxide Level 25 mEQ/L (20-30) Anion Gap 15 (5-15) Blood Urea Nitrogen 23 mg/dL (7-23) Creatinine 1.1 mg/dL (0.5-0.9) H Estimat Glomerular Filtration Rate 51.2 mL/min (>60) Glucose Level 204 mg/dL (74-106) H Hemoglobin A1c 7.5 % (< 6.0) H Calcium Level 9.5 mg/dL (8.6-10.2) Triglycerides Level 234 mg/dL (< 150) H Cholesterol Level 208 mg/dL (< 200) H LDL Cholesterol 129 mg/dL (60-99) H HDL Cholesterol 32 mg/dL (> 60) Cholesterol/HDL Ratio 6.5 (3.3-4.4) H ANITA ACE Apr 04, 2016 12:29
[2016-04-04 16:00] VITALS: BP 128/74
[2016-04-04] MEDS ORDERED: metFORMIN 500mg tab ORAL SCH (16:30)
--- NOTE | 2016-04-04 16:36 | Internal Med Progress Note ---
Subjective Date of Service: Apr 04, 2016 Physician Name Eris Reynolds Attending Physician Jovanny Goins MD Current Medications Medications (Trade) Dose Ordered Sig/Martha Route PRN Reason Start Time Stop Time Status Last Admin Dose Admin Acetaminophen (Tylenol) 650 mg Q6H PRN ORAL For Pain 03/30/16 19:00 04/29/16 18:59 Albuterol/ Ipratropium (DuoNeb 0.5-3(2.5)mg/3ml) 3 ml Q4H PRN HHN Shortness of Breath 04/03/16 13:00 04/08/16 12:59 Aspirin (ASA) 81 mg DAILY ORAL 03/31/16 09:00 04/30/16 08:59 04/04/16 08:41 Atenolol (Tenormin) 50 mg Q12HR ORAL 03/30/16 21:00 04/29/16 20:59 04/04/16 08:42 Atorvastatin Calcium (Lipitor) 10 mg BEDTIME ORAL 04/04/16 21:00 05/04/16 20:59 Dextrose (Dextrose 50%) STAT PRN IV Hypoglycemia 03/30/16 18:00 04/29/16 17:59 Fish Oil (Fish Oil) 1,000 mg DAILY ORAL 04/05/16 09:00 05/05/16 08:59 Heparin Sodium/ Dextrose (Heparin) 500 ml @ 43.028 mls/ hr Q24H IV 04/03/16 12:00 05/03/16 11:59 04/04/16 08:45 Insulin Aspart (NovoLOG) BEFORE MEALS AND HS SUBQ 03/30/16 21:00 04/29/16 20:59 Patient Own Medication (Patient's Own Med) 1 ea BIAC SUBQ 04/04/16 08:00 05/04/16 07:59 04/04/16 08:40 Ranitidine HCl (Zantac) 75 mg BID ORAL 03/31/16 09:00 04/30/16 08:59 04/04/16 08:42 Repaglinide (Prandin) 4 mg TIAC ORAL 04/04/16 07:45 05/04/16 07:44 04/04/16 11:40 Warfarin Sodium (Coumadin) 7.5 mg COUMADIN ONCE ORAL 04/04/16 17:00 04/04/16 17:01 Warfarin Sodium 1 ea 1 ea DAILY PRN MISC Per rx protocol 04/03/16 11:45 05/03/16 11:44 Allergies: Coded Allergies: No Known Allergies (Unverified , 03/30/16) ROS Limited/Unobtainable: No Constitutional: Reports: no symptoms HEENT: Reports: no symptoms Cardiovascular: Reports: chest pain Respiratory: Reports: shortness of breath Gastrointestinal/Abdominal: Reports: no symptoms Genitourinary: Reports: no symptoms Neurologic/Psychiatric: Reports: no symptoms Subjective 55 YO F admited with shortness of breath and pulmonary embolism. Cover for Int Med-Dr Goins. No longer requests Transfer to [facility]. Patient refused Xarelto Objective Last Vital Signs Date Time Temp Pulse Resp B/P Pulse Ox O2 Delivery O2 Flow Rate FiO2 04/04/16 16:00 96.0 71 18 128/74 98 Room Air Laboratory Tests Test 04/04/16 05:25 White Blood Count 8.6 K/UL (4.8-10.8) Red Blood Count 3.67 M/UL (4.20-5.40) L Hemoglobin 12.3 G/DL (12.0-16.0) Hematocrit 35.7 % (37.0-47.0) L Mean Corpuscular Volume 97 FL (80-99) Mean Corpuscular Hemoglobin 33.5 PG (27.0-31.0) H Mean Corpuscular Hemoglobin Concent 34.5 G/DL (32.0-36.0) Red Cell Distribution Width 12.1 % (11.6-14.8) Platelet Count 209 K/UL (150-450) Mean Platelet Volume 8.2 FL (6.5-10.1) Neutrophils (%) (Auto) 56.6 % (45.0-75.0) Lymphocytes (%) (Auto) 25.6 % (20.0-45.0) Monocytes (%) (Auto) 7.7 % (1.0-10.0) Eosinophils (%) (Auto) 9.2 % (0.0-3.0) H Basophils (%) (Auto) 1.0 % (0.0-2.0) Prothrombin Time 10.9 SEC (9.30-11.50) Prothromb Time International Ratio 1.1 (0.9-1.1) Activated Partial Thromboplast Time 75 SEC (23-33) H Sodium Level 137 mEQ/L (135-145) Potassium Level 4.1 mEQ/L (3.4-4.9) Chloride Level 97 mEQ/L (98-107) L Carbon Dioxide Level 25 mEQ/L (20-30) Anion Gap 15 (5-15) Blood Urea Nitrogen 23 mg/dL (7-23) Creatinine 1.1 mg/dL (0.5-0.9) H Estimat Glomerular Filtration Rate 51.2 mL/min (>60) Glucose Level 204 mg/dL (74-106) H Hemoglobin A1c 7.5 % (< 6.0) H Calcium Level 9.5 mg/dL (8.6-10.2) Triglycerides Level 234 mg/dL (< 150) H Cholesterol Level 208 mg/dL (< 200) H LDL Cholesterol 129 mg/dL (60-99) H HDL Cholesterol 32 mg/dL (> 60) Cholesterol/HDL Ratio 6.5 (3.3-4.4) H Intake and Output 04/03/16 04/04/16 19:00 07:00 Intake Total 759 ml 1073 ml Balance 759 ml 1073 ml Intake Oral 200 ml 600 ml IV Total 559 ml 473 ml # Voids 2 4 Objective General Appearance: WD/WN, no apparent distress, alert EENT: PERRL/EOMI, normal ENT inspection, TMs normal Neck: non-tender, normal alignment, supple Cardiovascular: normal peripheral pulses, normal rate, regular rhythm, no gallop/murmur, no JVD Respiratory/Chest: chest wall non-tender, decreased breath sounds, crackles/ rales, rhonchi - bilaterally, expiratory wheezing Abdomen: normal bowel sounds, non tender, soft, no organomegaly, no mass Extremities: normal range of motion, non-tender 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 Venous doppler neg. Start heparin drip and coumadin; D/C heparin when coumadin therapeutic. Patient refused Xarelto. (2) Hypoxemia Assessment & Plan: Due to pulm emboli (3) Shortness of breath Assessment & Plan: Due to pulmonary embolism. (4) Renal calculi (5) Diabetes Assessment & Plan: Cont glucophage and novolog sliding scale. (6) HTN (hypertension) Assessment & Plan: Cont atenolol (7) Chest pain Assessment & Plan: see nuclear cardiac stress test - Reversible Perfusion defect with ischemia. See cardiology note. Status: progressing Assessment/Plan Await coumadin to be therapeutic then D/C heparin. ERIS REYNOLDS Apr 04, 2016 16:36
[2016-04-04] MEDS ORDERED: Warfarin Sodium 7.5mg ORAL ONE (17:00)
[2016-04-04 20:00] VITALS: BP 120/77
[2016-04-05 00:25] VITALS: BP 123/69
[2016-04-05 04:30] VITALS: BP 123/73
[2016-04-05 04:43] LABS: BASOPHILS % (AUTO) 1.3 % (0.0-2.0); EOSINOPHILS % (AUTO) 9.3 % (0.0-3.0); LYMPHOCYTES % (AUTO) 25.6 % (20.0-45.0); MEAN CORPUSCULAR HEMOGLOBIN 33.4 PG (27.0-31.0); MEAN CORPUSCULAR HGB CONC 34.3 G/DL (32.0-36.0); MEAN CORPUSCULAR VOLUME 97 FL (80-99); MEAN PLATELET VOLUME 8.5 FL (6.5-10.1); MONOCYTES % (AUTO) 6.6 % (1.0-10.0); NEUTROPHILS % (AUTO) 57.2 % (45.0-75.0); PLATELET COUNT 205 K/UL (150-450); RED BLOOD COUNT 3.65 M/UL (4.20-5.40); RED CELL DISTRIBUTION WIDTH 11.7 % (11.6-14.8); WHITE BLOOD COUNT 9.4 K/UL (4.8-10.8)
[2016-04-05 04:53] LABS: INR 1.2 (0.9-1.1)
[2016-04-05 05:03] LABS: CALCIUM 9.4 mg/dL (8.6-10.2); GLOMERULAR FILTRATION RATE 57.1 mL/min (>60); POTASSIUM 3.8 mEQ/L (3.4-4.9)
[2016-04-05] MEDS: BYETTA 10 MCG SUBQ SCH ×2 (06:30→19:18)
[2016-04-05] MEDS: NovoLOG Insulin Flexpen SUBQ SCH ×4 (06:30→21:00)
[2016-04-05] MEDS: Repaglinide 1mg tab ORAL SCH ×3 (06:58→17:22)
[2016-04-05 08:13] VITALS: BP 129/75
[2016-04-05] MEDS: Docusate 100mg cap ORAL SCH ×2 (08:39→17:23)
[2016-04-05] MEDS: Aspirin Baby 81mg ORAL SCH (08:39)
[2016-04-05] MEDS: Heparin 25,000u/D5W 500ml (VTE/AF) IV SCH (09:15)
[2016-04-05 11:38] VITALS: BP 114/78
--- NOTE | 2016-04-05 11:56 | General Progress Note ---
Assessment/Plan Assessment/Plan ASSESSMENT: 1. Bilateral pulmonary embolism, on CTA. Final imaging study pending in EMR. Patient sustained pulmonary embolism after a seven-hour car ride, thus provoking factor. She will need a total of 3-6 months of anticoagulation. No intervention per pulm, and continue coumadin anticoagulation 2. Leukocytosis 2/2 reactive process 3. Shortness of breath, chest pain, rule out acute coronary syndrome. 4. Morbid obesity. 5. Diabetes mellitus. 6. Hypertension. 7. History of renal calculi. 8. Premature ventricular contractions. 9. Uterine fibroids. RECOMMENDATIONS: 1. Monitor counts 2. Send for hypercoagulable workup. 3. Will need 3-6 months of anticoag, specifically coumadin. At this time, continue coumadin, have discussed with patient its risks and benefits and she will continue at [facility] time 4. Maintain INR between 2-3 5. Off xarelto at this time 6. Continue heparin drip. 7. 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 GI prophylaxis with Pepcid. 9. Discussed with staff. Thank you, Richardson Alcantar MD Subjective Constitutional: Reports: no symptoms HEENT: Reports: no symptoms Cardiovascular: Reports: no symptoms Respiratory: Reports: no symptoms Gastrointestinal/Abdominal: Reports: poor appetite Genitourinary: Reports: no symptoms Neurologic/Psychiatric: Reports: no symptoms Endocrine: Reports: no symptoms Hematologic/Lymphatic: Reports: anemia Allergies: Coded Allergies: No Known Allergies (Unverified , 03/30/16) Subjective stable, tolerating coumadin well Objective Last 24 Hour Vital Signs Date Time Temp Pulse Resp B/P Pulse Ox O2 Delivery O2 Flow Rate FiO2 04/05/16 11:38 97.2 71 18 114/78 98 Room Air 04/05/16 08:40 63 129/75 04/05/16 08:13 96.1 63 18 129/75 100 Room Air 04/05/16 08:00 70 04/05/16 04:30 97.9 62 20 123/73 99 Room Air 04/05/16 04:00 64 04/05/16 00:25 97.0 70 20 123/69 96 Room Air 04/05/16 00:00 68 04/04/16 21:09 73 120/77 04/04/16 20:00 96.6 73 20 120/77 97 Room Air 04/04/16 20:00 80 04/04/16 19:41 71 18 Room Air 21 04/04/16 16:00 96.0 71 18 128/74 98 Room Air 04/04/16 16:00 67 Intake and Output 04/04/16 04/05/16 19:00 07:00 Intake Total 1066 ml 430.028 ml Output Total 3 ml Balance 1066 ml 427.028 ml Intake Oral 550 ml IV Total 516 ml 430.028 ml Output Urine Total 3 ml # Voids 3 # Bowel Movements 1 Laboratory Tests 04/05/16 04:00: White Blood Count 9.4, Red Blood Count 3.65L, Hemoglobin 12.2, Hematocrit 35.5L , Mean Corpuscular Volume 97, Mean Corpuscular Hemoglobin 33.4H, Mean Corpuscular Hemoglobin Concent 34.3, Red Cell Distribution Width 11.7, Platelet Count 205, Mean Platelet Volume 8.5, Neutrophils (%) (Auto) 57.2, Lymphocytes (% ) (Auto) 25.6, Monocytes (%) (Auto) 6.6, Eosinophils (%) (Auto) 9.3H, Basophils (%) (Auto) 1.3, Prothrombin Time 12.0H, Prothromb Time International Ratio 1.2H , Activated Partial Thromboplast Time 74H, Sodium Level 137, Potassium Level 3.8 , Chloride Level 99, Carbon Dioxide Level 21, Anion Gap 17H, Blood Urea Nitrogen 20, Creatinine 1.0H, Estimat Glomerular Filtration Rate 57.1, Glucose Level 193H, Calcium Level 9.4, Carcinoembryonic Antigen 1.4, CA 15-3 Antigen [ Pending], CA 19-9 Antigen 26.26, CA 125 Antigen [Pending] Height (Feet): 5 Height (Inches): 5.00 Weight (Pounds): 279 General Appearance: alert EENT: TMs normal Neck: non-tender Cardiovascular: regular rhythm Respiratory/Chest: no respiratory distress Abdomen: soft Extremities: non-tender Edema: no edema noted Leg (L), no edema noted Leg (R) Neurologic: alert Skin: warm/dry Richardson Alcantar Apr 05, 2016 11:56
--- NOTE | 2016-04-05 13:01 | Internal Med Progress Note ---
Subjective Date of Service: Apr 05, 2016 Physician Name Eris Reynolds Attending Physician Jovanny Goins MD Current Medications Medications (Trade) Dose Ordered Sig/Martha Route PRN Reason Start Time Stop Time Status Last Admin Dose Admin Acetaminophen (Tylenol) 650 mg Q6H PRN ORAL For Pain 03/30/16 19:00 04/29/16 18:59 Albuterol/ Ipratropium (DuoNeb 0.5-3(2.5)mg/3ml) 3 ml Q4H PRN HHN Shortness of Breath 04/03/16 13:00 04/08/16 12:59 Aspirin (ASA) 81 mg DAILY ORAL 03/31/16 09:00 04/30/16 08:59 04/05/16 08:39 Atenolol (Tenormin) 50 mg Q12HR ORAL 03/30/16 21:00 04/29/16 20:59 04/05/16 08:40 Atorvastatin Calcium (Lipitor) 10 mg BEDTIME ORAL 04/04/16 21:00 05/04/16 20:59 04/04/16 21:09 Dextrose (Dextrose 50%) STAT PRN IV Hypoglycemia 03/30/16 18:00 04/29/16 17:59 Docusate Sodium (Colace) 100 mg TWICE A DAY ORAL 04/05/16 09:00 05/05/16 08:59 04/05/16 08:39 Fish Oil (Fish Oil) 1,000 mg DAILY ORAL 04/05/16 09:00 05/05/16 08:59 04/05/16 08:39 Heparin Sodium/ Dextrose (Heparin) 500 ml @ 43.028 mls/ hr Q24H IV 04/03/16 12:00 05/03/16 11:59 04/05/16 09:15 Insulin Aspart (NovoLOG) BEFORE MEALS AND HS SUBQ 03/30/16 21:00 04/29/16 20:59 Patient Own Medication (Patient's Own Med) 1 ea BIAC SUBQ 04/04/16 08:00 05/04/16 07:59 04/05/16 06:30 Ranitidine HCl (Zantac) 75 mg BID ORAL 03/31/16 09:00 04/30/16 08:59 04/05/16 08:39 Repaglinide (Prandin) 4 mg TIAC ORAL 04/04/16 07:45 05/04/16 07:44 04/05/16 11:41 Warfarin Sodium (Coumadin) 10 mg COUMADIN ONCE ORAL 04/05/16 17:00 04/05/16 17:01 Warfarin Sodium 1 ea 1 ea DAILY PRN MISC Per rx protocol 04/03/16 11:45 05/03/16 11:44 Allergies: Coded Allergies: No Known Allergies (Unverified , 03/30/16) Subjective 55 YO F admited with shortness of breath and pulmonary embolism. Cover for Int Med-Dr Goins. No longer requests Transfer to [facility]. Patient refused Xarelto; Coumadin subtherapeutic. Shortness of breath improving. Objective Last Vital Signs Date Time Temp Pulse Resp B/P Pulse Ox O2 Delivery O2 Flow Rate FiO2 04/05/16 11:38 97.2 71 18 114/78 98 Room Air 04/04/16 19:41 21 Laboratory Tests Test 04/05/16 04:00 White Blood Count 9.4 K/UL (4.8-10.8) Red Blood Count 3.65 M/UL (4.20-5.40) L Hemoglobin 12.2 G/DL (12.0-16.0) Hematocrit 35.5 % (37.0-47.0) L Mean Corpuscular Volume 97 FL (80-99) Mean Corpuscular Hemoglobin 33.4 PG (27.0-31.0) H Mean Corpuscular Hemoglobin Concent 34.3 G/DL (32.0-36.0) Red Cell Distribution Width 11.7 % (11.6-14.8) Platelet Count 205 K/UL (150-450) Mean Platelet Volume 8.5 FL (6.5-10.1) Neutrophils (%) (Auto) 57.2 % (45.0-75.0) Lymphocytes (%) (Auto) 25.6 % (20.0-45.0) Monocytes (%) (Auto) 6.6 % (1.0-10.0) Eosinophils (%) (Auto) 9.3 % (0.0-3.0) H Basophils (%) (Auto) 1.3 % (0.0-2.0) Prothrombin Time 12.0 SEC (9.30-11.50) H Prothromb Time International Ratio 1.2 (0.9-1.1) H Activated Partial Thromboplast Time 74 SEC (23-33) H Sodium Level 137 mEQ/L (135-145) Potassium Level 3.8 mEQ/L (3.4-4.9) Chloride Level 99 mEQ/L (98-107) Carbon Dioxide Level 21 mEQ/L (20-30) Anion Gap 17 (5-15) H Blood Urea Nitrogen 20 mg/dL (7-23) Creatinine 1.0 mg/dL (0.5-0.9) H Estimat Glomerular Filtration Rate 57.1 mL/min (>60) Glucose Level 193 mg/dL (74-106) H Calcium Level 9.4 mg/dL (8.6-10.2) Carcinoembryonic Antigen 1.4 ng/mL CA 15-3 Antigen Pending CA 19-9 Antigen 26.26 U/mL (< 37) CA 125 Antigen Pending Intake and Output 04/04/16 04/05/16 19:00 07:00 Intake Total 1066 ml 430.028 ml Output Total 3 ml Balance 1066 ml 427.028 ml Intake Oral 550 ml IV Total 516 ml 430.028 ml Output Urine Total 3 ml # Voids 3 # Bowel Movements 1 Objective General Appearance: WD/WN, no apparent distress, alert EENT: PERRL/EOMI, normal ENT inspection, TMs normal Neck: non-tender, normal alignment, supple Cardiovascular: normal peripheral pulses, normal rate, regular rhythm, no gallop/murmur, no JVD Respiratory/Chest: chest wall non-tender, decreased breath sounds, crackles/ rales, rhonchi - bilaterally, expiratory wheezing Abdomen: normal bowel sounds, non tender, soft, no organomegaly, no mass Extremities: normal range of motion, non-tender 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 Venous doppler neg. Continue heparin drip and coumadin; D/C heparin when coumadin therapeutic. Patient refused Xarelto. (2) Hypoxemia Assessment & Plan: Due to pulm emboli (3) Shortness of breath Assessment & Plan: Due to pulmonary embolism. (4) Renal calculi (5) Diabetes Assessment & Plan: Cont glucophage and novolog sliding scale. (6) HTN (hypertension) Assessment & Plan: Cont atenolol (7) Chest pain Assessment & Plan: see nuclear cardiac stress test - Reversible Perfusion defect with ischemia. See cardiology note. Status: not improved Assessment/Plan Await coumadin to be therapeutic then D/C heparin. ERIS REYNOLDS Apr 05, 2016 13:01
--- NOTE | 2016-04-05 13:57 | Pulmonology Progress Note ---
Assessment/Plan Problems: (1) Pulmonary embolism (2) HTN (hypertension) (3) Diabetes Assessment/Plan continue heparin and coumadin until INR is more than 2 and overlap of 2 days. heart rate and BP are stable. check inr daily titrate fio2 to sat of 92% Subjective ROS Limited/Unobtainable: No Interval Events: dyspnea has resolved by 80% Constitutional: Reports: no symptoms HEENT: Repors: no symptoms Cardiovascular: Reports: no symptoms Gastrointestinal/Abdominal: Reports: no symptoms Allergies: Coded Allergies: No Known Allergies (Unverified , 03/30/16) Objective Last 24 Hour Vital Signs Date Time Temp Pulse Resp B/P Pulse Ox O2 Delivery O2 Flow Rate FiO2 04/05/16 12:00 74 04/05/16 11:38 97.2 71 18 114/78 98 Room Air 04/05/16 08:40 63 129/75 04/05/16 08:13 96.1 63 18 129/75 100 Room Air 04/05/16 08:00 70 04/05/16 04:30 97.9 62 20 123/73 99 Room Air 04/05/16 04:00 64 04/05/16 00:25 97.0 70 20 123/69 96 Room Air 04/05/16 00:00 68 04/04/16 21:09 73 120/77 04/04/16 20:00 96.6 73 20 120/77 97 Room Air 04/04/16 20:00 80 04/04/16 19:41 71 18 Room Air 21 04/04/16 16:00 96.0 71 18 128/74 98 Room Air 04/04/16 16:00 67 Intake and Output 04/04/16 04/05/16 19:00 07:00 Intake Total 1066 ml 430.028 ml Output Total 3 ml Balance 1066 ml 427.028 ml Intake Oral 550 ml IV Total 516 ml 430.028 ml Output Urine Total 3 ml # Voids 3 # Bowel Movements 1 General Appearance: WD/WN Respiratory/Chest: chest wall non-tender, lungs clear Cardiovascular: normal peripheral pulses, normal rate Abdomen: normal bowel sounds, soft, non tender Extremities: no cyanosis, no clubbing Skin: no rash Laboratory Tests 04/05/16 04:00: White Blood Count 9.4, Red Blood Count 3.65L, Hemoglobin 12.2, Hematocrit 35.5L , Mean Corpuscular Volume 97, Mean Corpuscular Hemoglobin 33.4H, Mean Corpuscular Hemoglobin Concent 34.3, Red Cell Distribution Width 11.7, Platelet Count 205, Mean Platelet Volume 8.5, Neutrophils (%) (Auto) 57.2, Lymphocytes (% ) (Auto) 25.6, Monocytes (%) (Auto) 6.6, Eosinophils (%) (Auto) 9.3H, Basophils (%) (Auto) 1.3, Prothrombin Time 12.0H, Prothromb Time International Ratio 1.2H , Activated Partial Thromboplast Time 74H, Sodium Level 137, Potassium Level 3.8 , Chloride Level 99, Carbon Dioxide Level 21, Anion Gap 17H, Blood Urea Nitrogen 20, Creatinine 1.0H, Estimat Glomerular Filtration Rate 57.1, Glucose Level 193H, Calcium Level 9.4, Carcinoembryonic Antigen 1.4, CA 15-3 Antigen [ Pending], CA 19-9 Antigen 26.26, CA 125 Antigen [Pending] Current Medications Medications (Trade) Dose Ordered Sig/Martha Route PRN Reason Start Time Stop Time Status Last Admin Dose Admin Acetaminophen (Tylenol) 650 mg Q6H PRN ORAL For Pain 03/30/16 19:00 04/29/16 18:59 Albuterol/ Ipratropium (DuoNeb 0.5-3(2.5)mg/3ml) 3 ml Q4H PRN HHN Shortness of Breath 04/03/16 13:00 04/08/16 12:59 Aspirin (ASA) 81 mg DAILY ORAL 03/31/16 09:00 04/30/16 08:59 04/05/16 08:39 Atenolol (Tenormin) 50 mg Q12HR ORAL 03/30/16 21:00 04/29/16 20:59 04/05/16 08:40 Atorvastatin Calcium (Lipitor) 10 mg BEDTIME ORAL 04/04/16 21:00 05/04/16 20:59 04/04/16 21:09 Dextrose (Dextrose 50%) STAT PRN IV Hypoglycemia 03/30/16 18:00 04/29/16 17:59 Docusate Sodium (Colace) 100 mg TWICE A DAY ORAL 04/05/16 09:00 05/05/16 08:59 04/05/16 08:39 Fish Oil (Fish Oil) 1,000 mg DAILY ORAL 04/05/16 09:00 05/05/16 08:59 04/05/16 08:39 Heparin Sodium/ Dextrose (Heparin) 500 ml @ 43.028 mls/ hr Q24H IV 04/03/16 12:00 05/03/16 11:59 04/05/16 09:15 Insulin Aspart (NovoLOG) BEFORE MEALS AND HS SUBQ 03/30/16 21:00 04/29/16 20:59 Patient Own Medication (Patient's Own Med) 1 ea BIAC SUBQ 04/04/16 08:00 05/04/16 07:59 04/05/16 06:30 Ranitidine HCl (Zantac) 75 mg BID ORAL 03/31/16 09:00 04/30/16 08:59 04/05/16 08:39 Repaglinide (Prandin) 4 mg TIAC ORAL 04/04/16 07:45 05/04/16 07:44 04/05/16 11:41 Warfarin Sodium (Coumadin) 10 mg COUMADIN ONCE ORAL 04/05/16 17:00 04/05/16 17:01 Warfarin Sodium 1 ea 1 ea DAILY PRN MISC Per rx protocol 04/03/16 11:45 05/03/16 11:44 EDMOND BERNAL Apr 05, 2016 13:57
[2016-04-05 16:00] VITALS: BP 111/71
[2016-04-05] MEDS ORDERED: Warfarin Sodium 10mg ORAL ONE (17:00)
[2016-04-05] MEDS ORDERED: Enoxaparin Sodium 300mg/3ml vial SUBQ SCH ×2 (19:00)
[2016-04-05] MEDS ORDERED: Heparin 5000 units/ml inj IV ONE (19:00)
[2016-04-05] MEDS: Heparin 25,000u/D5W 500ml 500 ML IV SCH ×2 (19:21→22:12)
[2016-04-05 20:00] VITALS: BP 122/76
[2016-04-06 00:30] VITALS: BP 121/72
[2016-04-06 01:23] LABS: BASOPHILS % (AUTO) 0.9 % (0.0-2.0); EOSINOPHILS % (AUTO) 10.4 % (0.0-3.0); LYMPHOCYTES % (AUTO) 26.9 % (20.0-45.0); MEAN CORPUSCULAR HEMOGLOBIN 33.7 PG (27.0-31.0); MEAN CORPUSCULAR HGB CONC 35.6 G/DL (32.0-36.0); MEAN CORPUSCULAR VOLUME 95 FL (80-99); MEAN PLATELET VOLUME 7.6 FL (6.5-10.1); MONOCYTES % (AUTO) 6.6 % (1.0-10.0); NEUTROPHILS % (AUTO) 55.2 % (45.0-75.0); PLATELET COUNT 209 K/UL (150-450); RED BLOOD COUNT 3.81 M/UL (4.20-5.40); RED CELL DISTRIBUTION WIDTH 11.5 % (11.6-14.8); WHITE BLOOD COUNT 10.1 K/UL (4.8-10.8)
[2016-04-06 01:29] LABS: INR 1.6 (0.9-1.1); PROTHROMBIN TIME 16.6 SEC (9.30-11.50)
[2016-04-06 01:37] LABS: CALCIUM 9.4 mg/dL (8.6-10.2); GLOMERULAR FILTRATION RATE 57.1 mL/min (>60); POTASSIUM 3.7 mEQ/L (3.4-4.9)
[2016-04-06] MEDS: Heparin 25,000u/D5W 500ml 500 ML IV SCH ×2 (02:22→13:06)
[2016-04-06 04:00] VITALS: BP 102/69
[2016-04-06] MEDS: NovoLOG Insulin Flexpen SUBQ SCH ×4 (06:15→21:00)
[2016-04-06] MEDS: Repaglinide 1mg tab ORAL SCH ×3 (06:59→17:23)
[2016-04-06] MEDS: BYETTA 10 MCG SUBQ SCH ×2 (07:44→17:59)
[2016-04-06 07:55] VITALS: BP 119/72
[2016-04-06] MEDS: Aspirin Baby 81mg ORAL SCH (09:12)
[2016-04-06] MEDS: Docusate 100mg cap ORAL SCH ×2 (09:12→17:22)
[2016-04-06 09:40] LABS: INR 1.9 (0.9-1.1); PROTHROMBIN TIME 19.6 SEC (9.30-11.50)
[2016-04-06 11:25] VITALS: BP 116/70
--- NOTE | 2016-04-06 13:15 | Pulmonology Progress Note ---
Assessment/Plan Problems: (1) Pulmonary embolism (2) HTN (hypertension) (3) Diabetes Assessment/Plan continue heparin and coumadin until INR is more than 2 and overlap of 2 days. heart rate and BP are stable. check inr daily titrate fio2 to sat of 92% pt claims she is back to 100% of her breathing capacity she can go home tomorrow if INR is therapeutic, i suggest she should take 2days of LOvenox as well Subjective ROS Limited/Unobtainable: No Interval Events: pt wants to go home Allergies: Coded Allergies: No Known Allergies (Unverified , 03/30/16) Objective Last 24 Hour Vital Signs Date Time Temp Pulse Resp B/P Pulse Ox O2 Delivery O2 Flow Rate FiO2 04/06/16 11:25 97.7 70 18 116/70 99 Room Air 04/06/16 09:13 59 119/72 04/06/16 08:00 79 04/06/16 07:55 96.8 59 18 119/72 99 Room Air 04/06/16 07:10 60 18 Room Air 21 04/06/16 04:00 56 04/06/16 04:00 97.9 60 20 102/69 95 Room Air 04/06/16 00:30 98.0 70 20 121/72 97 Room Air 04/06/16 00:00 78 04/05/16 22:10 69 122/76 04/05/16 20:00 97.5 69 20 122/76 99 Room Air 04/05/16 20:00 72 04/05/16 18:55 66 18 Room Air 21 04/05/16 16:00 66 04/05/16 16:00 97.3 64 20 111/71 96 Room Air Intake and Output 04/05/16 04/06/16 19:00 07:00 Intake Total 957 ml 578.417 ml Balance 957 ml 578.417 ml Intake Oral 570 ml 260 ml IV Total 387 ml 318.417 ml # Voids 2 4 General Appearance: WD/WN HEENT: normocephalic, atraumatic Respiratory/Chest: chest wall non-tender, lungs clear Cardiovascular: normal peripheral pulses, normal rate Abdomen: normal bowel sounds, soft, non tender Extremities: no cyanosis Skin: no rash Neurologic/Psychiatric: ramp manager II-XII grossly normal, no motor/sensory deficits Laboratory Tests 04/06/16 01:00: White Blood Count 10.1, Red Blood Count 3.81L, Hemoglobin 12.8, Hematocrit 36.1L , Mean Corpuscular Volume 95, Mean Corpuscular Hemoglobin 33.7H, Mean Corpuscular Hemoglobin Concent 35.6, Red Cell Distribution Width 11.5L, Platelet Count 209, Mean Platelet Volume 7.6, Neutrophils (%) (Auto) 55.2, Lymphocytes (%) (Auto) 26.9, Monocytes (%) (Auto) 6.6, Eosinophils (%) (Auto) 10.4H, Basophils (%) (Auto) 0.9, Prothrombin Time 16.6H, Prothromb Time International Ratio 1.6H, Activated Partial Thromboplast Time 112H, Sodium Level 136, Potassium Level 3.7, Chloride Level 95L, Carbon Dioxide Level 24, Anion Gap 17H, Blood Urea Nitrogen 15, Creatinine 1.0H, Estimat Glomerular Filtration Rate 57.1, Glucose Level 186H, Calcium Level 9.4 04/06/16 07:00: Stool Occult Blood Negative 04/06/16 08:20: Prothrombin Time 19.6H, Prothromb Time International Ratio 1.9H, Activated Partial Thromboplast Time 73H Current Medications Medications (Trade) Dose Ordered Sig/Martha Route PRN Reason Start Time Stop Time Status Last Admin Dose Admin Acetaminophen (Tylenol) 650 mg Q6H PRN ORAL For Pain 03/30/16 19:00 04/29/16 18:59 Albuterol/ Ipratropium (DuoNeb 0.5-3(2.5)mg/3ml) 3 ml Q4H PRN HHN Shortness of Breath 04/03/16 13:00 04/08/16 12:59 Aspirin (ASA) 81 mg DAILY ORAL 03/31/16 09:00 04/30/16 08:59 04/06/16 09:12 Atenolol (Tenormin) 50 mg Q12HR ORAL 03/30/16 21:00 04/29/16 20:59 04/06/16 09:13 Atorvastatin Calcium (Lipitor) 10 mg BEDTIME ORAL 04/04/16 21:00 05/04/16 20:59 04/05/16 22:10 Dextrose (Dextrose 50%) STAT PRN IV Hypoglycemia 03/30/16 18:00 04/29/16 17:59 Docusate Sodium 100 mg 100 mg TWICE A DAY ORAL 04/05/16 09:00 05/05/16 08:59 04/06/16 09:12 Fish Oil (Fish Oil) 1,000 mg DAILY ORAL 04/05/16 09:00 05/05/16 08:59 04/05/16 08:39 Heparin Sodium/ Dextrose (Heparin) 500 ml @ 35.435 mls/ hr adjust per protocol IV 04/06/16 02:15 05/06/16 02:14 04/06/16 13:06 Insulin Aspart (NovoLOG) BEFORE MEALS AND HS SUBQ 03/30/16 21:00 04/29/16 20:59 Patient Own Medication (Patient's Own Med) 1 ea BIAC SUBQ 04/04/16 08:00 05/04/16 07:59 04/06/16 07:44 Ranitidine HCl (Zantac) 75 mg BID ORAL 03/31/16 09:00 04/30/16 08:59 04/06/16 09:12 Repaglinide (Prandin) 4 mg TIAC ORAL 04/04/16 07:45 05/04/16 07:44 04/06/16 12:35 Warfarin Sodium (Coumadin per pharmacy) 1 ea DAILY PRN MISC Per rx protocol 04/03/16 11:45 05/03/16 11:44 Warfarin Sodium (Coumadin) 4 mg COUMADIN PO 04/06/16 17:00 04/06/16 17:01 EDMOND BERNAL Apr 06, 2016 13:15
[2016-04-06 15:17] LABS: CA 125 17.9 U/mL (0.0-38.1); CA15-3 28.1 U/mL (0.0-25.0)
[2016-04-06 16:00] VITALS: BP 100/61
--- NOTE | 2016-04-06 16:35 | General Progress Note ---
Assessment/Plan Assessment/Plan ASSESSMENT: 1. Bilateral pulmonary embolism, on CTA. Final imaging study pending in EMR. Patient sustained pulmonary embolism after a seven-hour car ride in addition has been on anti-progesterones -- thus provoking factor. She will need a total of 3-6 months of anticoagulation. No intervention per pulm, and continue coumadin anticoagulation 2. Leukocytosis 2/2 reactive process 3. Shortness of breath, chest pain, rule out acute coronary syndrome. 4. Morbid obesity. 5. Diabetes mellitus. 6. Hypertension. 7. History of renal calculi. 8. Premature ventricular contractions. 9. Uterine fibroids. RECOMMENDATIONS: 1. Monitor counts 2. Followup hypercoagulable workup. 3. Will need 3-6 months of anticoag, specifically coumadin 4. Maintain INR between 2-3 5. Continue heparin drip. 6. Overlap with 2 days of lovenox 7. 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 Discussed with staff. 9. FOLLOWUP AT DR[facility] Brunner [facility] Thank you, Richardson Alcantar MD Subjective Constitutional: Reports: no symptoms HEENT: Reports: no symptoms Cardiovascular: Reports: no symptoms Respiratory: Reports: no symptoms Gastrointestinal/Abdominal: Reports: poor appetite Genitourinary: Reports: no symptoms Neurologic/Psychiatric: Reports: no symptoms Endocrine: Reports: no symptoms Hematologic/Lymphatic: Reports: anemia Allergies: Coded Allergies: No Known Allergies (Unverified , 03/30/16) Subjective stable, breathing improved, has been doing better Objective Last 24 Hour Vital Signs Date Time Temp Pulse Resp B/P Pulse Ox O2 Delivery O2 Flow Rate FiO2 04/06/16 16:00 97.3 61 22 100/61 97 Room Air 04/06/16 12:00 70 04/06/16 11:25 97.7 70 18 116/70 99 Room Air 04/06/16 09:13 59 119/72 04/06/16 08:00 79 04/06/16 07:55 96.8 59 18 119/72 99 Room Air 04/06/16 07:10 60 18 Room Air 21 04/06/16 04:00 56 04/06/16 04:00 97.9 60 20 102/69 95 Room Air 04/06/16 00:30 98.0 70 20 121/72 97 Room Air 04/06/16 00:00 78 04/05/16 22:10 69 122/76 04/05/16 20:00 97.5 69 20 122/76 99 Room Air 04/05/16 20:00 72 04/05/16 18:55 66 18 Room Air 21 Intake and Output 04/05/16 04/06/16 19:00 07:00 Intake Total 957 ml 578.417 ml Balance 957 ml 578.417 ml Intake Oral 570 ml 260 ml IV Total 387 ml 318.417 ml # Voids 2 4 Laboratory Tests 04/06/16 01:00: White Blood Count 10.1, Red Blood Count 3.81L, Hemoglobin 12.8, Hematocrit 36.1L , Mean Corpuscular Volume 95, Mean Corpuscular Hemoglobin 33.7H, Mean Corpuscular Hemoglobin Concent 35.6, Red Cell Distribution Width 11.5L, Platelet Count 209, Mean Platelet Volume 7.6, Neutrophils (%) (Auto) 55.2, Lymphocytes (%) (Auto) 26.9, Monocytes (%) (Auto) 6.6, Eosinophils (%) (Auto) 10.4H, Basophils (%) (Auto) 0.9, Prothrombin Time 16.6H, Prothromb Time International Ratio 1.6H, Activated Partial Thromboplast Time 112H, Sodium Level 136, Potassium Level 3.7, Chloride Level 95L, Carbon Dioxide Level 24, Anion Gap 17H, Blood Urea Nitrogen 15, Creatinine 1.0H, Estimat Glomerular Filtration Rate 57.1, Glucose Level 186H, Calcium Level 9.4 04/06/16 07:00: Stool Occult Blood Negative 04/06/16 08:20: Prothrombin Time 19.6H, Prothromb Time International Ratio 1.9H, Activated Partial Thromboplast Time 73H Height (Feet): 5 Height (Inches): 5.00 Weight (Pounds): 279 General Appearance: no apparent distress EENT: normal ENT inspection Neck: supple Cardiovascular: regular rhythm Respiratory/Chest: lungs clear Abdomen: normal bowel sounds Extremities: non-tender Edema: 1+ Leg (L), 1+ Leg (R) Edema: mild edema Neurologic: oriented x 3 Skin: warm/dry Richardson Alcantar Apr 06, 2016 16:35
[2016-04-06] MEDS ORDERED: Warfarin Sodium 4mg PO SCH (17:00)
[2016-04-06] MEDS ORDERED: Warfarin Sodium 7.5mg ORAL SCH (17:00)
[2016-04-06] MEDS ORDERED: Warfarin per pharmacy MISC (18:09)
--- NOTE | 2016-04-06 18:13 | Internal Med Progress Note ---
Subjective Date of Service: Apr 06, 2016 Physician Name Eris Reynolds Attending Physician Jovanny Goins MD Current Medications Medications (Trade) Dose Ordered Sig/Martha Route PRN Reason Start Time Stop Time Status Last Admin Dose Admin Acetaminophen (Tylenol) 650 mg Q6H PRN ORAL For Pain 03/30/16 19:00 04/29/16 18:59 Albuterol/ Ipratropium (DuoNeb 0.5-3(2.5)mg/3ml) 3 ml Q4H PRN HHN Shortness of Breath 04/03/16 13:00 04/08/16 12:59 Aspirin (ASA) 81 mg DAILY ORAL 03/31/16 09:00 04/30/16 08:59 04/06/16 09:12 Atenolol (Tenormin) 50 mg Q12HR ORAL 03/30/16 21:00 04/29/16 20:59 04/06/16 09:13 Atorvastatin Calcium (Lipitor) 10 mg BEDTIME ORAL 04/04/16 21:00 05/04/16 20:59 04/05/16 22:10 Dextrose (Dextrose 50%) STAT PRN IV Hypoglycemia 03/30/16 18:00 04/29/16 17:59 Docusate Sodium 100 mg 100 mg TWICE A DAY ORAL 04/05/16 09:00 05/05/16 08:59 04/06/16 17:22 Fish Oil (Fish Oil) 1,000 mg DAILY ORAL 04/05/16 09:00 05/05/16 08:59 04/05/16 08:39 Heparin Sodium/ Dextrose (Heparin) 500 ml @ 35.435 mls/ hr adjust per protocol IV 04/06/16 02:15 05/06/16 02:14 04/06/16 13:06 Insulin Aspart (NovoLOG) BEFORE MEALS AND HS SUBQ 03/30/16 21:00 04/29/16 20:59 Patient Own Medication (Patient's Own Med) 1 ea BIAC SUBQ 04/04/16 08:00 05/04/16 07:59 04/06/16 17:59 Ranitidine HCl (Zantac) 75 mg BID ORAL 03/31/16 09:00 04/30/16 08:59 04/06/16 17:23 Repaglinide (Prandin) 4 mg TIAC ORAL 04/04/16 07:45 05/04/16 07:44 04/06/16 17:23 Warfarin Sodium (Coumadin per pharmacy) 1 ea DAILY PRN MISC Per rx protocol 04/03/16 11:45 05/03/16 11:44 Allergies: Coded Allergies: No Known Allergies (Unverified , 03/30/16) ROS Limited/Unobtainable: No Constitutional: Reports: no symptoms HEENT: Reports: no symptoms Cardiovascular: Reports: no symptoms Respiratory: Reports: shortness of breath Gastrointestinal/Abdominal: Reports: no symptoms Genitourinary: Reports: no symptoms Neurologic/Psychiatric: Reports: no symptoms Subjective 55 YO F admited with shortness of breath and pulmonary embolism. Cover for Int Med-Dr Goins. Coumadin subtherapeutic. Shortness of breath improving. Objective Last Vital Signs Date Time Temp Pulse Resp B/P Pulse Ox O2 Delivery O2 Flow Rate FiO2 04/06/16 17:27 Nasal Cannula 2.0 28 04/06/16 17:27 98 04/06/16 16:00 97.3 61 22 100/61 Laboratory Tests Test 04/06/16 01:00 04/06/16 07:00 04/06/16 08:20 White Blood Count 10.1 K/UL (4.8-10.8) Red Blood Count 3.81 M/UL (4.20-5.40) L Hemoglobin 12.8 G/DL (12.0-16.0) Hematocrit 36.1 % (37.0-47.0) L Mean Corpuscular Volume 95 FL (80-99) Mean Corpuscular Hemoglobin 33.7 PG (27.0-31.0) H Mean Corpuscular Hemoglobin Concent 35.6 G/DL (32.0-36.0) Red Cell Distribution Width 11.5 % (11.6-14.8) L Platelet Count 209 K/UL (150-450) Mean Platelet Volume 7.6 FL (6.5-10.1) Neutrophils (%) (Auto) 55.2 % (45.0-75.0) Lymphocytes (%) (Auto) 26.9 % (20.0-45.0) Monocytes (%) (Auto) 6.6 % (1.0-10.0) Eosinophils (%) (Auto) 10.4 % (0.0-3.0) H Basophils (%) (Auto) 0.9 % (0.0-2.0) Prothrombin Time 16.6 SEC (9.30-11.50) H 19.6 SEC (9.30-11.50) H Prothromb Time International Ratio 1.6 (0.9-1.1) H 1.9 (0.9-1.1) H Activated Partial Thromboplast Time 112 SEC (23-33) H 73 SEC (23-33) H Sodium Level 136 mEQ/L (135-145) Potassium Level 3.7 mEQ/L (3.4-4.9) Chloride Level 95 mEQ/L (98-107) L Carbon Dioxide Level 24 mEQ/L (20-30) Anion Gap 17 (5-15) H Blood Urea Nitrogen 15 mg/dL (7-23) Creatinine 1.0 mg/dL (0.5-0.9) H Estimat Glomerular Filtration Rate 57.1 mL/min (>60) Glucose Level 186 mg/dL (74-106) H Calcium Level 9.4 mg/dL (8.6-10.2) Stool Occult Blood Negative (NEGATIVE) Intake and Output 04/05/16 04/06/16 19:00 07:00 Intake Total 957 ml 578.417 ml Balance 957 ml 578.417 ml Intake Oral 570 ml 260 ml IV Total 387 ml 318.417 ml # Voids 2 4 Objective General Appearance: WD/WN, no apparent distress, alert EENT: PERRL/EOMI, normal ENT inspection, TMs normal Neck: non-tender, normal alignment, supple Cardiovascular: normal peripheral pulses, normal rate, regular rhythm, no gallop/murmur, no JVD Respiratory/Chest: chest wall non-tender, decreased breath sounds, crackles/ rales, rhonchi - bilaterally, expiratory wheezing Abdomen: normal bowel sounds, non tender, soft, no organomegaly, no mass Extremities: normal range of motion, non-tender Neurologic: associate financial representative II-XII grossly normal, no motor/sensory deficits Assessment/Plan Problem List: (1) Pulmonary embolism Assessment & Plan: Bilateral; left saddle embolus. Venous doppler neg. Continue heparin drip and coumadin; D/C heparin when coumadin therapeutic. Patient refused Xarelto. (2) Hypoxemia Assessment & Plan: Due to pulm emboli (3) Shortness of breath Assessment & Plan: Due to pulmonary embolism. (4) Renal calculi (5) Diabetes Assessment & Plan: Cont glucophage and novolog sliding scale. (6) HTN (hypertension) Assessment & Plan: Cont atenolol (7) Chest pain Assessment & Plan: see nuclear cardiac stress test - Reversible Perfusion defect with ischemia. See cardiology note-will require elective cardiac cath. Status: progressing Assessment/Plan Await coumadin to be therapeutic then D/C heparin-possibly am 04/07/16. ERIS REYNOLDS Apr 06, 2016 18:13
--- NOTE | 2016-04-06 18:27 | Internal Med Progress Note ---
Subjective Physician Name Luzmaria Reynolds Attending Physician Jovanny Goins MD Current Medications Medications (Trade) Dose Ordered Sig/Martha Route PRN Reason Start Time Stop Time Status Last Admin Dose Admin Acetaminophen (Tylenol) 650 mg Q6H PRN ORAL For Pain 03/30/16 19:00 04/29/16 18:59 Albuterol/ Ipratropium (DuoNeb 0.5-3(2.5)mg/3ml) 3 ml Q4H PRN HHN Shortness of Breath 04/03/16 13:00 04/08/16 12:59 Aspirin (ASA) 81 mg DAILY ORAL 03/31/16 09:00 04/30/16 08:59 04/06/16 09:12 Atenolol (Tenormin) 50 mg Q12HR ORAL 03/30/16 21:00 04/29/16 20:59 04/06/16 09:13 Atorvastatin Calcium (Lipitor) 10 mg BEDTIME ORAL 04/04/16 21:00 05/04/16 20:59 04/05/16 22:10 Dextrose (Dextrose 50%) STAT PRN IV Hypoglycemia 03/30/16 18:00 04/29/16 17:59 Docusate Sodium 100 mg 100 mg TWICE A DAY ORAL 04/05/16 09:00 05/05/16 08:59 04/06/16 17:22 Fish Oil (Fish Oil) 1,000 mg DAILY ORAL 04/05/16 09:00 05/05/16 08:59 04/05/16 08:39 Heparin Sodium/ Dextrose (Heparin) 500 ml @ 35.435 mls/ hr adjust per protocol IV 04/06/16 02:15 05/06/16 02:14 04/06/16 13:06 Insulin Aspart (NovoLOG) BEFORE MEALS AND HS SUBQ 03/30/16 21:00 04/29/16 20:59 Patient Own Medication (Patient's Own Med) 1 ea BIAC SUBQ 04/04/16 08:00 05/04/16 07:59 04/06/16 17:59 Ranitidine HCl (Zantac) 75 mg BID ORAL 03/31/16 09:00 04/30/16 08:59 04/06/16 17:23 Repaglinide (Prandin) 4 mg TIAC ORAL 04/04/16 07:45 05/04/16 07:44 04/06/16 17:23 Warfarin Sodium (Coumadin per pharmacy) 1 ea DAILY PRN MISC Per rx protocol 04/03/16 11:45 05/03/16 11:44 Allergies: Coded Allergies: No Known Allergies (Unverified , 03/30/16) Subjective 55 YO F admited with shortness of breath and pulmonary embolism. Cover for Int Raúl-Dr Goins. Coumadin subtherapeutic. Shortness of breath improving. Objective Last Vital Signs Date Time Temp Pulse Resp B/P Pulse Ox O2 Delivery O2 Flow Rate FiO2 04/06/16 17:27 Nasal Cannula 2.0 28 04/06/16 17:27 98 04/06/16 16:00 97.3 61 22 100/61 Laboratory Tests Test 04/06/16 01:00 04/06/16 07:00 04/06/16 08:20 White Blood Count 10.1 K/UL (4.8-10.8) Red Blood Count 3.81 M/UL (4.20-5.40) L Hemoglobin 12.8 G/DL (12.0-16.0) Hematocrit 36.1 % (37.0-47.0) L Mean Corpuscular Volume 95 FL (80-99) Mean Corpuscular Hemoglobin 33.7 PG (27.0-31.0) H Mean Corpuscular Hemoglobin Concent 35.6 G/DL (32.0-36.0) Red Cell Distribution Width 11.5 % (11.6-14.8) L Platelet Count 209 K/UL (150-450) Mean Platelet Volume 7.6 FL (6.5-10.1) Neutrophils (%) (Auto) 55.2 % (45.0-75.0) Lymphocytes (%) (Auto) 26.9 % (20.0-45.0) Monocytes (%) (Auto) 6.6 % (1.0-10.0) Eosinophils (%) (Auto) 10.4 % (0.0-3.0) H Basophils (%) (Auto) 0.9 % (0.0-2.0) Prothrombin Time 16.6 SEC (9.30-11.50) H 19.6 SEC (9.30-11.50) H Prothromb Time International Ratio 1.6 (0.9-1.1) H 1.9 (0.9-1.1) H Activated Partial Thromboplast Time 112 SEC (23-33) H 73 SEC (23-33) H Sodium Level 136 mEQ/L (135-145) Potassium Level 3.7 mEQ/L (3.4-4.9) Chloride Level 95 mEQ/L (98-107) L Carbon Dioxide Level 24 mEQ/L (20-30) Anion Gap 17 (5-15) H Blood Urea Nitrogen 15 mg/dL (7-23) Creatinine 1.0 mg/dL (0.5-0.9) H Estimat Glomerular Filtration Rate 57.1 mL/min (>60) Glucose Level 186 mg/dL (74-106) H Calcium Level 9.4 mg/dL (8.6-10.2) Stool Occult Blood Negative (NEGATIVE) Intake and Output 04/05/16 04/06/16 19:00 07:00 Intake Total 957 ml 578.417 ml Balance 957 ml 578.417 ml Intake Oral 570 ml 260 ml IV Total 387 ml 318.417 ml # Voids 2 4 Objective General Appearance: WD/WN, no apparent distress, alert EENT: PERRL/EOMI, normal ENT inspection, TMs normal Neck: non-tender, normal alignment, supple Cardiovascular: normal peripheral pulses, normal rate, regular rhythm, no gallop/murmur, no JVD Respiratory/Chest: chest wall non-tender, decreased breath sounds, crackles/ rales, rhonchi - bilaterally, expiratory wheezing Abdomen: normal bowel sounds, non tender, soft, no organomegaly, no mass Extremities: normal range of motion, non-tender Neurologic: gate agent II-XII grossly normal, no motor/sensory deficits Assessment/Plan Problem List: (1) Pulmonary embolism Assessment & Plan: Bilateral; left saddle embolus. Venous doppler neg. Continue heparin drip and coumadin; D/C heparin when coumadin therapeutic. Patient refused Xarelto. (2) Hypoxemia Assessment & Plan: Due to pulm emboli (3) Shortness of breath Assessment & Plan: Due to pulmonary embolism. (4) Renal calculi (5) Diabetes Assessment & Plan: Cont glucophage and novolog sliding scale. (6) HTN (hypertension) Assessment & Plan: Cont atenolol (7) Chest pain Assessment & Plan: see nuclear cardiac stress test - Reversible Perfusion defect with ischemia. See cardiology note-will require elective cardiac cath. Assessment/Plan Await coumadin to be therapeutic then D/C heparin-possibly am 04/07/16. LUZMARIA REYNOLDS Apr 06, 2016 18:27
[2016-04-06 20:00] VITALS: BP_SYST 100; BP_SYST 115; BP_DIAS 61; BP_DIAS 74
[2016-04-07] VITALS: BP 121/63
[2016-04-07] MEDS: Heparin 25,000u/D5W 500ml 500 ML IV SCH (03:21)
[2016-04-07 04:00] VITALS: BP 113/71
[2016-04-07 04:48] LABS: INR 2.2 (0.9-1.1); PROTHROMBIN TIME 22.9 SEC (9.30-11.50)
[2016-04-07] MEDS: NovoLOG Insulin Flexpen SUBQ SCH ×2 (06:30→11:08)
[2016-04-07 08:02] VITALS: BP 116/76
[2016-04-07] MEDS ORDERED: Enoxaparin 120 mg inj SUBQ SCH ×2 (09:00→10:00)
[2016-04-07] MEDS: Aspirin Baby 81mg ORAL SCH (09:01)
[2016-04-07] MEDS: BYETTA 10 MCG SUBQ SCH (09:01)
[2016-04-07] MEDS: Docusate 100mg cap ORAL SCH (09:02)
[2016-04-07] MEDS ORDERED: Warfarin Sodium 5mg ORAL SCH (11:00)
[2016-04-07 11:30] VITALS: BP 110/70
[2016-04-07] MEDS ORDERED: Repaglinide 0.5mg Tab ORAL SCH (11:30)
[2016-04-07] MEDS ORDERED: LOVENOX120 MG/0.8 SUBQ (12:26)
--- NOTE | 2016-04-07 13:37 | Discharge Summary ---
Discharge Summary Hospital Course Date of Admission Mar 30, 2016 at 13:20 Date of Discharge Admitting Diagnosis ACS HPI Yina Joaquin is a 55 year old female who was admitted on Mar 30, 2016 at 13: 20 for Acute Coronary Syndrome Hospital Course Dictated for Int Med-Dr Goins no. [id number]. Discharge Discharge Disposition Patient was discharged to Home (01) Discharge Diagnoses: LUZMARIA REYNOLDS Apr 07, 2016 13:37
[2016-04-07] MEDS ORDERED: NS 275ml ONE (15:02)
--- NOTE | 2016-04-07 15:37 | Pulmonology Progress Note ---
Assessment/Plan Problems: (1) Pulmonary embolism (2) HTN (hypertension) (3) Diabetes Assessment/Plan continue heparin and coumadin until INR is more than 2 and overlap of 2 days. heart rate and BP are stable. check inr daily titrate fio2 to sat of 92% pt claims she is back to 100% of her breathing capacity she can go home tomorrow if INR is therapeutic, i suggest she should take 2days of LOvenox as well Subjective Respiratory: Reports: dry cough, dyspnea at rest, dyspnea on exertion, hemoptysis, pleuritic pain, shortness of breath, wheezing Allergies: Coded Allergies: No Known Allergies (Unverified , 03/30/16) Objective Last 24 Hour Vital Signs Date Time Temp Pulse Resp B/P Pulse Ox O2 Delivery O2 Flow Rate FiO2 04/07/16 14:24 Nasal Cannula 2.0 28 04/07/16 14:22 98 Nasal Cannula 2.0 28 04/07/16 14:21 64 16 Room Air 21 04/07/16 12:00 73 04/07/16 11:30 97.0 70 18 110/70 100 Room Air 04/07/16 09:02 56 116/76 04/07/16 08:02 97.9 56 18 116/76 100 Room Air 04/07/16 08:00 61 04/07/16 04:37 58 04/07/16 04:00 97.5 62 20 113/71 96 Room Air 04/07/16 00:00 97.7 90 20 121/63 95 Room Air 04/06/16 23:50 70 04/06/16 21:42 68 115/74 04/06/16 20:00 78 04/06/16 20:00 97.4 68 20 115/74 96 Room Air 04/06/16 19:00 68 18 Room Air 21 04/06/16 17:27 Nasal Cannula 2.0 28 04/06/16 17:27 98 Nasal Cannula 2.0 28 04/06/16 16:00 97.3 61 22 100/61 97 Room Air 04/06/16 16:00 68 Intake and Output 04/06/16 04/07/16 19:00 07:00 Intake Total 655.185 ml 965.220 ml Balance 655.185 ml 965.220 ml Intake Oral 240 ml 540 ml IV Total 415.185 ml 425.220 ml # Voids 2 2 General Appearance: no acute distress HEENT: normocephalic, atraumatic, PERRL Respiratory/Chest: chest wall non-tender, lungs clear, normal breath sounds Breasts: no masses Cardiovascular: normal peripheral pulses, normal rate, regular rhythm, no JVD Abdomen: normal bowel sounds, soft, non tender, no organomegaly Genitourinary: normal external genitalia Extremities: no cyanosis Skin: no rash, no lesions Neurologic/Psychiatric: 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
--- NOTE | 2016-04-07 17:15 | General Progress Note ---
Assessment/Plan Assessment/Plan ASSESSMENT: 1. Bilateral pulmonary embolism, on CTA. Patient sustained pulmonary embolism after a seven-hour car ride in addition has been on anti-progesterones -- thus provoking factor. She will need a total of 3-6 months of anticoagulation. No intervention per pulm, and continue coumadin anticoagulation as outpatient 2. Leukocytosis 2/2 reactive process 3. Shortness of breath, chest pain, rule out acute coronary syndrome. 4. Morbid obesity. 5. Diabetes mellitus. 6. Hypertension. 7. History of renal calculi. 8. Premature ventricular contractions. 9. Uterine fibroids. RECOMMENDATIONS: 1. Monitor counts 2. Followup hypercoagulable workup. 3. Will need 3-6 months of anticoag, specifically coumadin 4. Maintain INR between 2-3 5. Continue lovenox as outpatient x 2 days 6. Discussed with staff. 7. FOLLOWUP AT DR[facility] Brunner [facility] Thank you, Richardson Alcantar MD Subjective Constitutional: Reports: no symptoms HEENT: Reports: no symptoms Cardiovascular: Reports: no symptoms Respiratory: Reports: no symptoms Gastrointestinal/Abdominal: Reports: poor appetite Genitourinary: Reports: no symptoms Neurologic/Psychiatric: Reports: no symptoms Endocrine: Reports: no symptoms Hematologic/Lymphatic: Reports: anemia Allergies: Coded Allergies: No Known Allergies (Unverified , 03/30/16) Subjective stable, breathing improved, doing better Objective Last 24 Hour Vital Signs Date Time Temp Pulse Resp B/P Pulse Ox O2 Delivery O2 Flow Rate FiO2 04/07/16 14:24 Nasal Cannula 2.0 28 04/07/16 14:22 98 Nasal Cannula 2.0 28 04/07/16 14:21 64 16 Room Air 21 04/07/16 12:00 73 04/07/16 11:30 97.0 70 18 110/70 100 Room Air 04/07/16 09:02 56 116/76 04/07/16 08:02 97.9 56 18 116/76 100 Room Air 04/07/16 08:00 61 04/07/16 04:37 58 04/07/16 04:00 97.5 62 20 113/71 96 Room Air 04/07/16 00:00 97.7 90 20 121/63 95 Room Air 04/06/16 23:50 70 04/06/16 21:42 68 115/74 04/06/16 20:00 78 04/06/16 20:00 97.4 68 20 115/74 96 Room Air 04/06/16 19:00 68 18 Room Air 21 04/06/16 17:27 Nasal Cannula 2.0 28 04/06/16 17:27 98 Nasal Cannula 2.0 28 Intake and Output 04/06/16 04/07/16 19:00 07:00 Intake Total 655.185 ml 965.220 ml Balance 655.185 ml 965.220 ml Intake Oral 240 ml 540 ml IV Total 415.185 ml 425.220 ml # Voids 2 2 Laboratory Tests 04/07/16 04:00: Prothrombin Time 22.9H, Prothromb Time International Ratio 2.2H, Activated Partial Thromboplast Time 93H Height (Feet): 5 Height (Inches): 5.00 Weight (Pounds): 279 General Appearance: no apparent distress EENT: TMs normal Neck: supple Cardiovascular: regular rhythm Respiratory/Chest: normal breath sounds Abdomen: non tender Pelvis: normal rectal exam Extremities: normal inspection Edema: 1+ Arm (L), 1+ Arm (R), 1+ Leg (L), 1+ Leg (R) Edema: mild edema Neurologic: alert Skin: warm/dry Richadrson Alcantar Apr 07, 2016 17:15
[2016-04-07 20:13] LABS: PROTEIN C ACTIVITY 163 % (73-180); PROTEIN S ACTIVITY 129 % (63-140)
--- NOTE | 2016-04-08 05:48 | Discharge Summary ---
DATE OF ADMISSION: 03/30/2016 DATE OF DISCHARGE: 04/07/2016 ADMITTING DIAGNOSES: 1. Shortness of breath. 2. Diabetes type 2. 3. History of renal calculi. 4. Hypertension. 5. History of uterine fibroid tumor. DISCHARGE DIAGNOSES: 1. Bilateral pulmonary embolus. 2. Shortness of breath. 3. Diabetes type 2. 4. Renal calculi. 5. Hypertension. 6. Uterine fibroids. 7. Left infrahilar opacities. HOSPITAL COURSE BY PROBLEM LIST: 1. Pulmonary embolus. An initial CT angiogram of the chest revealed bilateral pulmonary emboli including the left lateral embolus. A Hematology/Oncology consultation was obtained by Dr. Alcantar. A Pulmonary consultation was obtained by Dr. Lewis. The patient was started on heparin drip. The patient was also started on Coumadin per pharmacy protocol. The patient's discharge INR was 2.2 on 5 mg of Coumadin. The patient is to continue Coumadin 5 mg one by p.o. daily as an outpatient. The patient is to follow up with her primary care physician at [facility] for continued monitoring of Coumadin. It is recommended the patient remain on Coumadin for three to six months. 2. Shortness of breath. This is secondary to bilateral pulmonary emboli as above. 3. Diabetes type 2. The patient remained on a NovoLog sliding scale during the hospitalization. Accu-Cheks were performed q.a.c. and at bedtime. The patient is to follow up with her primary care physician in one week. 4. History of renal calculi. 5. Hypertension. The patient remained on atenolol 50 mg one tablet p.o. twice daily. Blood pressure is well controlled during the hospitalization. The patient to follow up with her primary care physician in one week. 6. History of uterine fibroids. 7. Left infrahilar opacities probably secondary to pulmonary embolism as above. The patient is to follow up with her primary care as an outpatient. DISCHARGE MEDICATIONS: Please refer to discharge medication list. DISCHARGE INSTRUCTIONS: The patient is discharged home today, 04/07/2016. The patient is to follow up with her primary care physician at [facility] within two weeks. Eris Barkley M.D. DR: RITCHIE JOB#: [id number] CC:
[2016-04-09 09:27] LABS: PROTHROMBIN GENE ANALYSIS Negative (.)
--- NOTE | 2016-04-13 16:09 | Diagnostic Imaging Report ---
APPROVED REPORT CPT Code: 72934 Present Symptoms Comments: High D dimer BILATERAL: Imaging reveals a patent deep venous system bilaterally. There is no evidence of thrombus within the femoral, popliteal or tibial segments. The greater saphenous veins are also within normal limits. Doppler indicates normal spontaneous flow within these segments.
== END 2016-04-07 15:03 | disposition home or self-care (01) | DRG 176 ==
LOC: EMR 12:01 → OBSVTOIN 13:20 → INTOOBSV 13:20 → 2E 13:20 → EDBEDREQ 15:05
DX: I26.99 Other pulmonary embolism without acute cor pulmonale (principal); Z68.42 Body mass index [BMI] 45.0-49.9, adult; I10 Essential (primary) hypertension; D25.9 Leiomyoma of uterus, unspecified; E11.9 Type 2 diabetes mellitus without complications; N20.0 Calculus of kidney; E66.01 Morbid (severe) obesity due to excess calories; I49.3 Ventricular premature depolarization
CPT/HCPCS: 36415; 71010; 71275; 78452; 80048; 80053; 80061; 81003; 81241; 82140; 82248; 82270; 82378; 82550; 82728; 82962; 83036; 83735; 83880; 84443; 84484; 85025; 85303; 85306; 85379; 85610; 85730; 86300; 86301; 86304; 93005; 93017; 93306; 93970; 94664; 94760; J1815